=== PATIENT | female | born 1960 | race Two or more races ===

== ENCOUNTER → 2019-08-08 | Emergency (ER) | payer MEDICARE, MEDICAID ==
[~2019-08-08] VITALS: Ht 157.5 cm; Wt 71.2 kg
[~2019-08-08] MED LIST: ALBUTEROL SULF 2.5 MG/0.5ML(0.5%) NEB SOLN HHN ONE; IPRATROPIUM BROM 0.5 MG/2.5ML INH SOL HHN ONE; methylPREDNISolone SOD SUCC 125 MG/2 ML VL IV ONE
[2019-08-08 17:20] LABS: Basophils # (auto) 0 10 ^3/uL (0-0.2); Basophils % (auto) 0.8 % (0.0-2.0); Eosinophils # (auto) 0.1 10 ^3/uL (0-0.8); Eosinophils % (auto) 1.1 % (0.0-7.0); Hemoglobin 16.2 g/dL (12.2-16.2); Lymphocytes # (auto) 2.5 10 ^3/uL (0.4-5.4); Lymphocytes % (auto) 41.9 % (10.0-50.0); Mean Corpuscular Hemoglobin 32.4 pg (28.0-32.0); Mean Corpuscular Hgb Conc. 34.5 g/dL (32.0-36.0); Mean Corpuscular Volume 93.9 fL (80.0-100.0); Monocytes # (auto) 0.3 10 ^3/uL (0-1.3); Monocytes % (auto) 5.3 % (0.0-12.0); Neutrophils # (auto) 3.1 10 ^3/uL (1.6-8.6); Neutrophils % (auto) 50.9 % (37.0-80.0); Nucleated Red Blood Cells % 0.1 %; Platelet Count (auto) 187 10^3/uL (140-450); Red Blood Cells 5.01 10^6/uL (4.0-5.20); Red Cell Distribution Width 13.3 % (11.8-14.3); White Blood Cell 6.1 10^3/uL (4.4-10.8)
[2019-08-08 17:39] LABS: Albumin 4.2 g/dL (3.4-5.0); Anion Gap 9 (5-15); Blood Urea Nitrogen 18 mg/dL (7-18); Calcium 9.6 mg/dL (8.5-10.1); Carbon Dioxide 23 mmol/L (21-32); Chloride 107 mmol/L (98-107); Glucose 153 mg/dL (74-106); Potassium 4.3 mmol/L (3.5-5.1); Sodium 139 mmol/L (136-145)
[2019-08-08 17:46] LABS: Alanine Aminotransferase 101 U/L (13-56); Alkaline Phosphatase 46 U/L (45-117); Aspartate Aminotransferase 69 U/L (15-37); Bilirubin, Total 0.4 mg/dL (0.2-1.0); GFR African American 73 mL/min; GFR Non-African American 60 mL/min; Total Protein 7.9 g/dL (6.4-8.2)
[2019-08-08 20:00] VITALS: BP 118/71
== END | disposition home or self-care (01) ==
LOC: ER 16:09
DX: J44.9 Chronic obstructive pulmonary disease, unspecified (principal); J20.9 Acute bronchitis, unspecified; R79.89 Other specified abnormal findings of blood chemistry; I10 Essential (primary) hypertension; E78.5 Hyperlipidemia, unspecified; K21.9 Gastro-esophageal reflux disease without esophagitis; Z90.49 Acquired absence of other specified parts of digestive tract
CPT/HCPCS: 36415; 71045; 80053; 83735; 84484; 85025; 93005; 94640; 96374; 99285; J2930; J7644

== ENCOUNTER 2020-11-08 17:24 | Inpatient (IN) | payer MEDICARE, MEDICAID ==
[~2020-11-08] VITALS: Ht 162.6 cm; Wt 75.0 kg
[2020-11-08] MEDS ORDERED: methylPREDNISolone SOD SUCC 125 MG/2 ML VL IV ONE (17:45)
[2020-11-08] MEDS ORDERED: IPRATROPIUM BROM 0.5 MG/2.5ML INH SOL HHN ONE (17:45)
[2020-11-08] MEDS ORDERED: ALBUTEROL SULF 2.5 MG/0.5ML(0.5%) NEB SOLN HHN ONE (17:45)
[2020-11-08 18:19] LABS: Basophils # (auto) 0 10 ^3/uL (0-0.2); Basophils % (auto) 0.4 % (0.0-2.0); Eosinophils # (auto) 0.1 10 ^3/uL (0-0.8); Eosinophils % (auto) 1.3 % (0.0-7.0); Hematocrit 44.8 % (36.0-46.0); Hemoglobin 15.9 g/dL (12.2-16.2); Lymphocytes # (auto) 3.9 10 ^3/uL (0.4-5.4); Lymphocytes % (auto) 45.6 % (10.0-50.0); Mean Corpuscular Hemoglobin 32.4 pg (28.0-32.0); Mean Corpuscular Hgb Conc. 35.5 g/dL (32.0-36.0); Mean Corpuscular Volume 91.2 fL (80.0-100.0); Monocytes # (auto) 0.5 10 ^3/uL (0-1.3); Monocytes % (auto) 5.8 % (0.0-12.0); Neutrophils % (auto) 46.9 % (37.0-80.0); Nucleated Red Blood Cells % 0.1 %; Red Blood Cells 4.91 10^6/uL (4.0-5.20); Red Cell Distribution Width 13.6 % (11.8-14.3); White Blood Cell 8.6 10^3/uL (4.4-10.8)
[2020-11-08 18:35] LABS: Calcium 9.4 mg/dL (8.5-10.1); Potassium 3.5 mmol/L (3.5-5.1)
[2020-11-08 18:38] LABS: BUN/Creatinine Ratio 16.5; Bilirubin, Total 0.5 mg/dL (0.2-1.0); CRP High Sensitivity 0.11 mg/dL (< 0.3); Total Protein 7.8 g/dL (6.4-8.2)
[2020-11-08] MEDS ORDERED: DEXTROSE (50%) 50ML SYRG IV PRN (21:00)
[2020-11-08] MEDS ORDERED: MORPHINE SULF INJ 2 MG/ML SYRINGE 1ML IV PRN (21:00)
[2020-11-08] MEDS ORDERED: TEMAZEPAM 15 MG CAP PO PRN (21:00)
[2020-11-08] MEDS ORDERED: ONDANSETRON HCL 4 MG/2 ML VIAL IV PRN (21:00)
[2020-11-08] MEDS ORDERED: NITROGLYCERIN 0.4 MG SL TAB SL PRN (21:00)
[2020-11-08 21:45] VITALS: BP 130/80
[2020-11-08] MEDS: FAMOTIDINE 20 MG TAB PO SCH (22:02)
[2020-11-08] MEDS: ACCU-CHEK COMFORT CURVE STRIP VI SCH (22:03)
[2020-11-08] MEDS: InsuLIN REG 1unit/0.01ml Soln (100units/ml) SC SCH (22:03)
[2020-11-09] MEDS: IPRATROPIUM BROM 0.5 MG/2.5ML INH SOL NEB SCH ×3 (06:45→20:09)
[2020-11-09] MEDS: ALBUTEROL SULF 2.5 MG/0.5ML(0.5%) NEB SOLN NEB SCH ×3 (06:45→20:09)
[2020-11-09] MEDS: ACCU-CHEK COMFORT CURVE STRIP VI SCH ×4 (07:52→21:26)
[2020-11-09] MEDS: InsuLIN REG 1unit/0.01ml Soln (100units/ml) SC SCH ×4 (07:59→21:26)
[2020-11-09 08:53] VITALS: BP 113/78
[2020-11-09 09:00] VITALS: BP 136/78
[2020-11-09] MEDS ORDERED: methylPREDNISolone SOD SUCC 40 MG/ML VL IV SCH (10:00)
[2020-11-09] MEDS: ENOXAPARIN SOD 40 MG/0.4 ML SYRINGE SC SCH (10:10)
[2020-11-09] MEDS: ACETAMINOPHEN 325 MG TAB PO PRN (11:39)
[2020-11-09 12:00] VITALS: BP 110/66
[2020-11-09] MEDS ORDERED: DULO60CA PO (12:47)
[2020-11-09] MEDS ORDERED: ALBU2TAB4 PO (12:47)
[2020-11-09] MEDS ORDERED: ATOR10TA PO (12:47)
[2020-11-09] MEDS ORDERED: OMEP20TA PO (12:47)
[2020-11-09] MEDS ORDERED: UMEC1INH IN (12:47)
[2020-11-09] MEDS ORDERED: BUDE1AER4 IN (13:01)
[2020-11-09 16:00] VITALS: BP 105/73
[2020-11-09] MEDS ORDERED: HYDROcodone-ACET 5/325MG TAB PO PRN (16:15)
[2020-11-09] MEDS ORDERED: INSULIN LANTUS (GLARGINE) 1 /0.01ml (100units/ml) SC ONE (17:15)
[2020-11-09] MEDS: ACETYLCYSTEINE 10 %(100MG/ML) SOL 4ML NEB SCH (20:09)
[2020-11-09] MEDS: BUDESONIDE (INHALATION) 0.5 MG/2 ML NEB NEB SCH (20:09)
[2020-11-09] MEDS: FAMOTIDINE 20 MG TAB PO SCH (21:20)
[2020-11-09] MEDS: DOXYCYCLINE 100 MG TAB/CAP PO SCH (21:21)
[2020-11-09 22:00] VITALS: BP 115/76
[2020-11-10] MEDS: ACETYLCYSTEINE 10 %(100MG/ML) SOL 4ML NEB SCH ×4 (00:32→19:02)
[2020-11-10 05:00] VITALS: BP_SYST 146; BP_SYST 98; BP_DIAS 69; BP_DIAS 70
[2020-11-10] MEDS: ACCU-CHEK COMFORT CURVE STRIP VI SCH ×4 (06:23→21:27)
[2020-11-10] MEDS: InsuLIN REG 1unit/0.01ml Soln (100units/ml) SC SCH ×4 (06:23→21:28)
[2020-11-10] MEDS: IPRATROPIUM BROM 0.5 MG/2.5ML INH SOL NEB SCH ×3 (06:57→19:02)
[2020-11-10] MEDS: ALBUTEROL SULF 2.5 MG/0.5ML(0.5%) NEB SOLN NEB SCH ×3 (06:57→19:02)
[2020-11-10] MEDS: BUDESONIDE (INHALATION) 0.5 MG/2 ML NEB NEB SCH ×2 (06:57→19:02)
[2020-11-10 08:33] VITALS: BP 137/62
[2020-11-10] MEDS: ENOXAPARIN SOD 40 MG/0.4 ML SYRINGE SC SCH (09:01)
[2020-11-10] MEDS: DOXYCYCLINE 100 MG TAB/CAP PO SCH ×2 (09:01→21:31)
[2020-11-10] MEDS: DULoxetine HCL 30 MG CAP PO SCH (09:01)
[2020-11-10] MEDS: predniSONE 20 MG TAB PO SCH (09:01)
[2020-11-10] MEDS: NYSTATIN (MOUTH-THROAT) 500,000 UNITS/5 ML SUSP MT SCH ×3 (11:48→21:31)
[2020-11-10 13:00] VITALS: BP 138/71
[2020-11-10 17:00] VITALS: BP 128/87
[2020-11-10] MEDS: FAMOTIDINE 20 MG TAB PO SCH (21:31)
[2020-11-10 22:00] VITALS: BP 126/82
[2020-11-11 05:00] VITALS: BP 130/87
[2020-11-11] MEDS: ACETAMINOPHEN 325 MG TAB PO PRN (05:12)
[2020-11-11 06:14] LABS: Basophils # (auto) 0 10 ^3/uL (0-0.2); Basophils % (auto) 0.3 % (0.0-2.0); Eosinophils # (auto) 0 10 ^3/uL (0-0.8); Eosinophils % (auto) 0.2 % (0.0-7.0); Hematocrit 43.7 % (36.0-46.0); Hemoglobin 15.5 g/dL (12.2-16.2); Lymphocytes # (auto) 3.9 10 ^3/uL (0.4-5.4); Lymphocytes % (auto) 39.8 % (10.0-50.0); Mean Corpuscular Hemoglobin 32.8 pg (28.0-32.0); Mean Corpuscular Hgb Conc. 35.5 g/dL (32.0-36.0); Mean Corpuscular Volume 92.4 fL (80.0-100.0); Monocytes # (auto) 0.4 10 ^3/uL (0-1.3); Monocytes % (auto) 3.8 % (0.0-12.0); Neutrophils # (auto) 5.5 10 ^3/uL (1.6-8.6); Neutrophils % (auto) 55.9 % (37.0-80.0); Red Blood Cells 4.73 10^6/uL (4.0-5.20); Red Cell Distribution Width 13.3 % (11.8-14.3); White Blood Cell 9.9 10^3/uL (4.4-10.8)
[2020-11-11 06:21] LABS: Potassium 3.8 mmol/L (3.5-5.1)
[2020-11-11 06:28] LABS: Albumin 3.5 g/dL (3.4-5.0); Bilirubin, Total 0.5 mg/dL (0.2-1.0); Calcium 9.1 mg/dL (8.5-10.1); Total Protein 7.3 g/dL (6.4-8.2)
[2020-11-11] MEDS: ACCU-CHEK COMFORT CURVE STRIP VI SCH ×3 (06:45→16:57)
[2020-11-11] MEDS: InsuLIN REG 1unit/0.01ml Soln (100units/ml) SC SCH ×3 (06:47→16:57)
[2020-11-11] MEDS: NYSTATIN (MOUTH-THROAT) 500,000 UNITS/5 ML SUSP MT SCH ×3 (06:48→16:58)
[2020-11-11] MEDS: IPRATROPIUM BROM 0.5 MG/2.5ML INH SOL NEB SCH ×3 (07:21→18:26)
[2020-11-11] MEDS: ALBUTEROL SULF 2.5 MG/0.5ML(0.5%) NEB SOLN NEB SCH ×3 (07:21→18:26)
[2020-11-11] MEDS: BUDESONIDE (INHALATION) 0.5 MG/2 ML NEB NEB SCH ×2 (07:21→18:26)
[2020-11-11] MEDS: ACETYLCYSTEINE 10 %(100MG/ML) SOL 4ML NEB SCH ×3 (07:22→18:26)
[2020-11-11 08:50] VITALS: BP 128/77
[2020-11-11] MEDS: DULoxetine HCL 30 MG CAP PO SCH (09:22)
[2020-11-11] MEDS: DOXYCYCLINE 100 MG TAB/CAP PO SCH (09:22)
[2020-11-11] MEDS: ENOXAPARIN SOD 40 MG/0.4 ML SYRINGE SC SCH (09:22)
[2020-11-11] MEDS: predniSONE 20 MG TAB PO SCH (09:22)
[2020-11-11 13:00] VITALS: BP 136/84
[2020-11-11] MEDS ORDERED: levoFLOXacin 500 MG TAB PO ONE (13:30)
[2020-11-11 13:34] VITALS: BP 128/77
[2020-11-11] MEDS ORDERED: PRED20TA2 PO (16:03)
[2020-11-11] MEDS ORDERED: LEVO750T64 PO (16:03)
[2020-11-11 16:10] VITALS: BP 128/86
[2020-11-11] MEDS ORDERED: NYS5LQ MT (16:56)
[2020-11-11 17:00] VITALS: BP 145/95
[2020-11-12] MEDS ORDERED: levoFLOXacin 500 MG TAB PO SCH (10:00)
== END 2020-11-11 18:30 | disposition home or self-care (01) | DRG 192 ==
LOC: EDBD 17:24 → ER 17:24 → TELE 20:57 → TELE-CENTR 11-09 08:37 → CENTRAL 11-09 18:37
PROVIDERS: ADMIT Nurse Practitioner; ATTEND Internal Medicine
DX: J47.1 Bronchiectasis with (acute) exacerbation (principal); Z20.822 Contact with and (suspected) exposure to COVID-19; E11.65 Type 2 diabetes mellitus with hyperglycemia; E78.5 Hyperlipidemia, unspecified; J84.10 Pulmonary fibrosis, unspecified; I10 Essential (primary) hypertension; T38.0X5A Adverse effect of glucocorticoids and synthetic analogues, initial encounter; Y92.89 Other specified places as the place of occurrence of the external cause; Z80.9 Family history of malignant neoplasm, unspecified; Z82.49 Family history of ischemic heart disease and other diseases of the circulatory system; Z90.49 Acquired absence of other specified parts of digestive tract; Z87.891 Personal history of nicotine dependence
CPT/HCPCS: 36415; 71045; 71250; 80053; 82728; 82962; 83880; 85025; 86141; 87426; 93005; 94640; 94644; 96374; 96375; G0378; J1815; J2405

== ENCOUNTER 2021-07-07 17:29 | Inpatient (IN) | payer MEDICARE, MEDICAID ==
[~2021-07-07] VITALS: Ht 160 cm; Wt 73.5 kg
[~2021-07-07 17:29] MED LIST changes: +ALBU2TAB4 PO; -ALBUTEROL SULF 2.5 MG/0.5ML(0.5%) NEB SOLN HHN ONE; +ATOR10TA PO; +BUDE1AER4 IN; +DULO60CA PO; -IPRATROPIUM BROM 0.5 MG/2.5ML INH SOL HHN ONE; +LEVO750T64 PO; +NYS5LQ MT; +OMEP20TA PO; +PRED20TA2 PO; +UMEC1INH IN; -methylPREDNISolone SOD SUCC 125 MG/2 ML VL IV ONE
[2021-07-07] MEDS ORDERED: MORPHINE SULFATE 4 MG/ML SYR/VIAL IV ONE (18:00)
[2021-07-07] MEDS ORDERED: ONDANSETRON HCL 4 MG/2 ML VIAL IV ONE (18:00)
[2021-07-07] MEDS ORDERED: methylPREDNISolone SOD SUCC 125 MG/2 ML VL IV ONE (18:00)
[2021-07-07 18:28] LABS: Basophils # (auto) 0.2 10 ^3/uL (0-0.2); Basophils % (auto) 2.7 % (0.0-2.0); Eosinophils # (auto) 0.1 10 ^3/uL (0-0.8); Eosinophils % (auto) 1.6 % (0.0-7.0); Hematocrit 43.4 % (36.0-46.0); Hemoglobin 14.9 g/dL (12.2-16.2); Lymphocytes # (auto) 3.4 10 ^3/uL (0.4-5.4); Mean Corpuscular Hgb Conc. 34.2 g/dL (32.0-36.0); Mean Corpuscular Volume 90.7 fL (80.0-100.0); Monocytes # (auto) 0.3 10 ^3/uL (0-1.3); Neutrophils # (auto) 3.2 10 ^3/uL (1.6-8.6); Neutrophils % (auto) 44.7 % (37.0-80.0); Nucleated Red Blood Cells % 0.2 %; Red Blood Cells 4.79 10^6/uL (4.0-5.20); Red Cell Distribution Width 12.7 % (11.8-14.3); White Blood Cell 7.2 10^3/uL (4.4-10.8)
[2021-07-07 18:46] LABS: Albumin 3.9 g/dL (3.4-5.0); Calcium 9.5 mg/dL (8.5-10.1); Potassium 3.7 mmol/L (3.5-5.1)
[2021-07-07 18:48] LABS: Lactic Acid w/Reflex 2.1 mmol/L (0.4-2.0)
[2021-07-07 18:53] LABS: BUN/Creatinine Ratio 18.9; Bilirubin, Total 0.3 mg/dL (0.2-1.0); Total Protein 7.5 g/dL (6.4-8.2)
[2021-07-07] MEDS ORDERED: ONDANSETRON HCL 4 MG/2 ML VIAL IV PRN (21:45)
[2021-07-07] MEDS ORDERED: DOCUSATE SOD 100 MG CAP PO PRN (21:45)
[2021-07-07] MEDS: methylPREDNISolone SOD SUCC 40 MG/ML VL IV SCH (23:07)
[2021-07-07] MEDS: FAMOTIDINE (10MG/ML) 2ML VL IV SCH (23:07)
[2021-07-07] MEDS: SODIUM CHLOR 0.9% PF (SALINE LOCK) 10ML VIAL/SYR IV SCH (23:07)
[2021-07-07] MEDS: HYDROcodone-ACET 5/325MG TAB PO PRN (23:08)
[2021-07-07] MEDS ORDERED: MORPHINE SULFATE INJECTION 2 MG/ML SYRG IV PRN (23:30)
[2021-07-07] MEDS ORDERED: NITROGLYCERIN 0.4 MG SL TAB SL PRN (23:30)
[2021-07-08] MEDS ORDERED: ATOR10TA PO (02:08)
[2021-07-08] MEDS ORDERED: FENO160T8 PO (02:08)
[2021-07-08] MEDS ORDERED: METF-370 PO (02:08)
[2021-07-08 02:11] VITALS: BP 134/83
[2021-07-08] MEDS ORDERED: SOD CHL 0.45% 1,000 ML IV SCH (02:15)
[2021-07-08] MEDS: HYDROcodone-ACET 5/325MG TAB PO PRN ×2 (04:17→10:53)
[2021-07-08 04:44] VITALS: BP 112/71
[2021-07-08] MEDS: methylPREDNISolone SOD SUCC 40 MG/ML VL IV SCH ×3 (06:14→21:12)
[2021-07-08] MEDS: SODIUM CHLOR 0.9% PF (SALINE LOCK) 10ML VIAL/SYR IV SCH ×3 (06:14→21:13)
[2021-07-08 06:59] LABS: Basophils # (auto) 0 10 ^3/uL (0-0.2); Basophils % (auto) 0.5 % (0.0-2.0); Eosinophils # (auto) 0 10 ^3/uL (0-0.8); Eosinophils % (auto) 0.3 % (0.0-7.0); Hematocrit 43.3 % (36.0-46.0); Hemoglobin 14.4 g/dL (12.2-16.2); Lymphocytes # (auto) 1.6 10 ^3/uL (0.4-5.4); Lymphocytes % (auto) 34.3 % (10.0-50.0); Mean Corpuscular Hemoglobin 30.7 pg (28.0-32.0); Mean Corpuscular Hgb Conc. 33.3 g/dL (32.0-36.0); Mean Corpuscular Volume 92.1 fL (80.0-100.0); Monocytes # (auto) 0 10 ^3/uL (0-1.3); Monocytes % (auto) 0.7 % (0.0-12.0); Neutrophils # (auto) 2.9 10 ^3/uL (1.6-8.6); Neutrophils % (auto) 64.2 % (37.0-80.0); Nucleated Red Blood Cells % 0.1 %; Red Cell Distribution Width 12.8 % (11.8-14.3); White Blood Cell 4.5 10^3/uL (4.4-10.8)
[2021-07-08 07:13] LABS: Potassium 4.1 mmol/L (3.5-5.1)
[2021-07-08 07:17] LABS: Lactic Acid w/Reflex 2.4 mmol/L (0.4-2.0)
[2021-07-08 07:24] LABS: Albumin 3.8 g/dL (3.4-5.0); BUN/Creatinine Ratio 18.2; Bilirubin, Total 0.4 mg/dL (0.2-1.0); Calcium 9.1 mg/dL (8.5-10.1); Total Protein 7.6 g/dL (6.4-8.2)
[2021-07-08 09:00] VITALS: BP 155/80
[2021-07-08] MEDS: FAMOTIDINE (10MG/ML) 2ML VL IV SCH ×2 (10:53→21:12)
[2021-07-08] MEDS: ENOXAPARIN SOD 40 MG/0.4 ML SYRINGE SC SCH (10:53)
[2021-07-08 13:00] VITALS: BP 145/85
[2021-07-08] MEDS: ACETAMINOPHEN 325 MG TAB PO PRN (15:30)
[2021-07-08] MEDS ORDERED: guaiFENesin 200 MG/10 ML UD GT PRN (16:00)
[2021-07-08 17:00] VITALS: BP 129/77
[2021-07-08] MEDS: ACCU-CHEK COMFORT CURVE STRIP VI SCH (21:44)
[2021-07-08] MEDS ORDERED: DEXTROSE (50%) 50ML SYRG IV SCH (21:45)
[2021-07-08] MEDS: InsuLIN REG 1unit/0.01ml Soln (100units/ml) SC SCH (21:48)
[2021-07-08 22:00] VITALS: BP 141/89
[2021-07-09] MEDS: ALBUTEROL SULF 2.5 MG/0.5ML(0.5%) NEB SOLN NEB PRN ×4 (00:31→19:17)
[2021-07-09] MEDS: IPRATROPIUM BROM 0.5 MG/2.5ML INH SOL NEB PRN ×4 (00:31→19:17)
[2021-07-09 05:00] VITALS: BP 139/83
[2021-07-09] MEDS: SODIUM CHLOR 0.9% PF (SALINE LOCK) 10ML VIAL/SYR IV SCH ×3 (06:31→21:21)
[2021-07-09] MEDS: methylPREDNISolone SOD SUCC 40 MG/ML VL IV SCH ×3 (06:31→21:19)
[2021-07-09] MEDS: InsuLIN REG 1unit/0.01ml Soln (100units/ml) SC SCH ×4 (06:31→21:33)
[2021-07-09] MEDS: ACCU-CHEK COMFORT CURVE STRIP VI SCH ×4 (06:32→21:32)
[2021-07-09 09:00] VITALS: BP 144/84
[2021-07-09] MEDS: ENOXAPARIN SOD 40 MG/0.4 ML SYRINGE SC SCH (10:00)
[2021-07-09] MEDS: FAMOTIDINE (10MG/ML) 2ML VL IV SCH ×2 (10:00→21:19)
[2021-07-09 13:00] VITALS: BP 160/92
[2021-07-09 16:42] VITALS: BP 160/96
[2021-07-09] MEDS: PROMETHAZINE W/CODEINE 5 ML ORAL SYRUP PO PRN ×2 (16:56→21:24)
[2021-07-09] MEDS ORDERED: LOSARTAN POTASSIUM 50 MG TAB PO ONE (18:00)
[2021-07-09] MEDS ORDERED: levoFLOXacin 500 MG TAB PO ONE (18:00)
[2021-07-10] MEDS: IPRATROPIUM BROM 0.5 MG/2.5ML INH SOL NEB SCH ×6 (03:06→22:34)
[2021-07-10] MEDS: ALBUTEROL SULF 2.5 MG/0.5ML(0.5%) NEB SOLN NEB SCH ×6 (03:06→22:34)
[2021-07-10 05:00] VITALS: BP 151/91
[2021-07-10] MEDS: methylPREDNISolone SOD SUCC 40 MG/ML VL IV SCH ×3 (06:22→21:51)
[2021-07-10] MEDS: ACCU-CHEK COMFORT CURVE STRIP VI SCH ×4 (06:29→21:11)
[2021-07-10] MEDS: InsuLIN REG 1unit/0.01ml Soln (100units/ml) SC SCH ×4 (06:31→20:57)
[2021-07-10] MEDS: SODIUM CHLOR 0.9% PF (SALINE LOCK) 10ML VIAL/SYR IV SCH ×3 (06:33→21:50)
[2021-07-10 09:00] VITALS: BP 158/95
[2021-07-10] MEDS: levoFLOXacin 500 MG TAB PO SCH (10:13)
[2021-07-10] MEDS: FAMOTIDINE (10MG/ML) 2ML VL IV SCH ×2 (10:13→21:50)
[2021-07-10] MEDS: LOSARTAN POTASSIUM 50 MG TAB PO SCH (10:13)
[2021-07-10] MEDS: ENOXAPARIN SOD 40 MG/0.4 ML SYRINGE SC SCH (10:13)
[2021-07-10 13:00] VITALS: BP 147/96
[2021-07-10] MEDS ORDERED: hydrALAZINE HCL 20 MG/ML VL IV PRN (14:30)
[2021-07-10] MEDS: PROMETHAZINE W/CODEINE 5 ML ORAL SYRUP PO PRN (14:54)
[2021-07-10 17:00] VITALS: BP 167/101
[2021-07-10] MEDS: ACETAMINOPHEN 325 MG TAB PO PRN (17:13)
[2021-07-10 18:40] VITALS: BP 148/81
[2021-07-10 20:00] VITALS: BP 166/100
[2021-07-10] MEDS: INSULIN LANTUS (GLARGINE) 1 /0.01ml (100units/ml) SC SCH (22:00)
[2021-07-10] MEDS: ACETYLCYSTEINE 20%(200MG/ML) SOL 4ML NEB SCH (22:34)
[2021-07-11] MEDS: IPRATROPIUM BROM 0.5 MG/2.5ML INH SOL NEB SCH ×5 (06:01→22:59)
[2021-07-11] MEDS: ACETYLCYSTEINE 20%(200MG/ML) SOL 4ML NEB SCH ×5 (06:01→22:59)
[2021-07-11] MEDS: ALBUTEROL SULF 2.5 MG/0.5ML(0.5%) NEB SOLN NEB SCH ×5 (06:01→22:59)
[2021-07-11] MEDS: InsuLIN REG 1unit/0.01ml Soln (100units/ml) SC SCH ×4 (06:07→21:42)
[2021-07-11] MEDS: ACCU-CHEK COMFORT CURVE STRIP VI SCH ×4 (06:27→21:22)
[2021-07-11] MEDS: SODIUM CHLOR 0.9% PF (SALINE LOCK) 10ML VIAL/SYR IV SCH ×3 (06:36→21:23)
[2021-07-11] MEDS: methylPREDNISolone SOD SUCC 40 MG/ML VL IV SCH ×3 (06:36→21:23)
[2021-07-11 07:27] LABS: Lactic Acid w/Reflex 2.9 mmol/L (0.4-2.0)
[2021-07-11 07:39] VITALS: BP 115/70
[2021-07-11 07:57] LABS: Alkaline Phosphatase 49 U/L (45-117); Anion Gap 9 (5-15); BUN/Creatinine Ratio 24.5; Blood Urea Nitrogen 23 mg/dL (7-18); Carbon Dioxide 21 mmol/L (21-32); Chloride 108 mmol/L (98-107); GFR African American 78 mL/min; GFR Non-African American 64 mL/min; Glucose 184 mg/dL (74-106); Potassium 4.3 mmol/L (3.5-5.1); Sodium 138 mmol/L (136-145)
[2021-07-11 07:58] LABS: Alanine Aminotransferase 264 U/L (13-56); Albumin 4.2 g/dL (3.4-5.0); Aspartate Aminotransferase 229 U/L (15-37); Bilirubin, Total 0.4 mg/dL (0.2-1.0); Total Protein 8.6 g/dL (6.4-8.2)
[2021-07-11 08:45] VITALS: BP 150/94
[2021-07-11] MEDS ORDERED: ALBUTEROL SULF 2.5 MG/0.5ML(0.5%) NEB SOLN ONE ×2 (09:11→13:23)
[2021-07-11] MEDS ORDERED: IPRATROPIUM BROM 0.5 MG/2.5ML INH SOL ONE ×2 (09:12→13:23)
[2021-07-11] MEDS: FAMOTIDINE (10MG/ML) 2ML VL IV SCH ×2 (09:38→21:22)
[2021-07-11] MEDS: ENOXAPARIN SOD 40 MG/0.4 ML SYRINGE SC SCH (09:39)
[2021-07-11] MEDS: LOSARTAN POTASSIUM 50 MG TAB PO SCH (09:39)
[2021-07-11] MEDS: levoFLOXacin 500 MG TAB PO SCH (09:39)
[2021-07-11] MEDS: ACETAMINOPHEN 325 MG TAB PO PRN (09:46)
[2021-07-11 13:00] VITALS: BP 138/98
[2021-07-11] MEDS: PROMETHAZINE W/CODEINE 5 ML ORAL SYRUP PO PRN (13:07)
[2021-07-11 17:00] VITALS: BP 133/81
[2021-07-11] MEDS: NYSTATIN (MOUTH-THROAT) 500,000 UNITS/5 ML SUSP MT SCH ×2 (19:39→21:24)
[2021-07-11] MEDS: INSULIN LANTUS (GLARGINE) 1 /0.01ml (100units/ml) SC SCH (21:42)
[2021-07-11 22:00] VITALS: BP 136/84
[2021-07-12] MEDS: ACETAMINOPHEN 325 MG TAB PO PRN (03:20)
[2021-07-12] MEDS: PROMETHAZINE W/CODEINE 5 ML ORAL SYRUP PO PRN (03:20)
[2021-07-12 05:00] VITALS: BP 138/89
[2021-07-12] MEDS: ALBUTEROL SULF 2.5 MG/0.5ML(0.5%) NEB SOLN NEB SCH ×5 (06:01→21:41)
[2021-07-12] MEDS: ACETYLCYSTEINE 20%(200MG/ML) SOL 4ML NEB SCH ×6 (06:01→21:41)
[2021-07-12] MEDS: IPRATROPIUM BROM 0.5 MG/2.5ML INH SOL NEB SCH ×5 (06:01→21:41)
[2021-07-12] MEDS: ACCU-CHEK COMFORT CURVE STRIP VI SCH ×4 (06:09→21:55)
[2021-07-12] MEDS: methylPREDNISolone SOD SUCC 40 MG/ML VL IV SCH ×2 (06:10→21:19)
[2021-07-12] MEDS: NYSTATIN (MOUTH-THROAT) 500,000 UNITS/5 ML SUSP MT SCH ×4 (06:10→21:19)
[2021-07-12] MEDS: SODIUM CHLOR 0.9% PF (SALINE LOCK) 10ML VIAL/SYR IV SCH ×3 (06:10→21:18)
[2021-07-12] MEDS: InsuLIN REG 1unit/0.01ml Soln (100units/ml) SC SCH ×4 (06:17→22:03)
[2021-07-12 08:51] VITALS: BP 101/59
[2021-07-12] MEDS: FAMOTIDINE (10MG/ML) 2ML VL IV SCH ×2 (09:09→21:18)
[2021-07-12] MEDS: levoFLOXacin 500 MG TAB PO SCH (09:10)
[2021-07-12] MEDS: ENOXAPARIN SOD 40 MG/0.4 ML SYRINGE SC SCH (09:10)
[2021-07-12] MEDS: LOSARTAN POTASSIUM 50 MG TAB PO SCH (09:11)
[2021-07-12 12:52] VITALS: BP 149/99
[2021-07-12] MEDS ORDERED: HYDROcodone-ACET 5/325MG TAB PO PRN (14:15)
[2021-07-12 17:00] VITALS: BP 131/87
[2021-07-12 21:34] VITALS: BP 128/85
[2021-07-12] MEDS: INSULIN LANTUS (GLARGINE) 1 /0.01ml (100units/ml) SC SCH (22:05)
[2021-07-13 05:00] VITALS: BP 118/91
[2021-07-13] MEDS: SODIUM CHLOR 0.9% PF (SALINE LOCK) 10ML VIAL/SYR IV SCH (05:53)
[2021-07-13] MEDS: NYSTATIN (MOUTH-THROAT) 500,000 UNITS/5 ML SUSP MT SCH ×2 (05:54→13:51)
[2021-07-13] MEDS: ACETYLCYSTEINE 20%(200MG/ML) SOL 4ML NEB SCH ×3 (06:00→14:00)
[2021-07-13 06:03] LABS: Hematocrit 47.3 % (36.0-46.0); Hemoglobin 16.4 g/dL (12.2-16.2); Mean Corpuscular Hemoglobin 31.4 pg (28.0-32.0); Mean Corpuscular Hgb Conc. 34.7 g/dL (32.0-36.0); Mean Corpuscular Volume 90.5 fL (80.0-100.0); Red Blood Cells 5.22 10^6/uL (4.0-5.20); Red Cell Distribution Width 13.1 % (11.8-14.3); White Blood Cell 10.3 10^3/uL (4.4-10.8)
[2021-07-13 06:11] LABS: INR 1.05 (0.9-1.15)
[2021-07-13] MEDS: ACCU-CHEK COMFORT CURVE STRIP VI SCH ×2 (06:15→11:30)
[2021-07-13] MEDS: ALBUTEROL SULF 2.5 MG/0.5ML(0.5%) NEB SOLN NEB SCH ×3 (06:28→14:00)
[2021-07-13] MEDS: IPRATROPIUM BROM 0.5 MG/2.5ML INH SOL NEB SCH ×3 (06:28→14:00)
[2021-07-13] MEDS: InsuLIN REG 1unit/0.01ml Soln (100units/ml) SC SCH ×2 (06:32→13:51)
[2021-07-13 06:33] LABS: Magnesium 2.3 mg/dL (1.6-2.6); Potassium 4.3 mmol/L (3.5-5.1)
[2021-07-13 06:39] LABS: Basophils % (manual) 0 (0.0-2.0); Blast Cells 0; Eosinophils % (manual) 0 (0-7); Metamyelocytes % 0; Promyelocytes % 0; Reactive Lymphocytes 0
[2021-07-13 06:40] LABS: Bilirubin, Total 0.4 mg/dL (0.2-1.0); Calcium 9.9 mg/dL (8.5-10.1); Total Protein 7.5 g/dL (6.4-8.2)
[2021-07-13 08:34] LABS: Band Neutrophils % (manual) 2; Lymphocytes % (manual) 20 (10.0-50.0); Monocytes % (manual) 2 (0-12); Myelocytes % 1
[2021-07-13 09:00] VITALS: BP 122/75
[2021-07-13] MEDS: FAMOTIDINE (10MG/ML) 2ML VL IV SCH (10:56)
[2021-07-13] MEDS: methylPREDNISolone SOD SUCC 40 MG/ML VL IV SCH (10:56)
[2021-07-13] MEDS: levoFLOXacin 500 MG TAB PO SCH (10:57)
[2021-07-13] MEDS: ENOXAPARIN SOD 40 MG/0.4 ML SYRINGE SC SCH (10:57)
[2021-07-13] MEDS: LOSARTAN POTASSIUM 50 MG TAB PO SCH (10:58)
[2021-07-13] MEDS ORDERED: BISACODYL 10 MG RECT SUPP PR ONE (12:00)
[2021-07-13 13:00] VITALS: BP 124/89
[2021-07-13] MEDS ORDERED: LEVO500T31 PO (14:14)
[2021-07-13] MEDS ORDERED: PRED20TA2 PO (14:14)
[2021-07-13] MEDS ORDERED: DEXT1SYP9 PO (14:14)
[2021-07-13] MEDS ORDERED: DOCU-94 PO (14:16)
[2021-07-13] MEDS ORDERED: LOSA25TA38 PO (14:17)
[2021-07-13 15:28] LABS: Hepatitis B Surface Antibody Positive (Negative)
[2021-07-13 15:53] LABS: Hepatitis A Total Antibody Positive (Negative)
[2021-07-13 16:29] LABS: Hepatitis C Antibody Positive (Negative)
== END 2021-07-13 17:15 | disposition home or self-care (01) | DRG 196 ==
LOC: ER 17:30 → TELE 23:21 → TELE-WESTW 07-08 01:39
PROVIDERS: ADMIT Nurse Practitioner Family; ATTEND Internal Medicine
DX: J84.112 Idiopathic pulmonary fibrosis (principal); J96.21 Acute and chronic respiratory failure with hypoxia; J44.1 Chronic obstructive pulmonary disease with (acute) exacerbation; J44.0 Chronic obstructive pulmonary disease with (acute) lower respiratory infection; J98.11 Atelectasis; B17.9 Acute viral hepatitis, unspecified; D72.829 Elevated white blood cell count, unspecified; I10 Essential (primary) hypertension; J20.9 Acute bronchitis, unspecified; K21.9 Gastro-esophageal reflux disease without esophagitis; E11.9 Type 2 diabetes mellitus without complications; K76.9 Liver disease, unspecified; R79.89 Other specified abnormal findings of blood chemistry; E78.5 Hyperlipidemia, unspecified; Z80.9 Family history of malignant neoplasm, unspecified; Z82.0 Family history of epilepsy and other diseases of the nervous system; Z99.81 Dependence on supplemental oxygen; Z82.49 Family history of ischemic heart disease and other diseases of the circulatory system; Z86.16 Personal history of COVID-19; Z87.01 Personal history of pneumonia (recurrent); Z87.891 Personal history of nicotine dependence; Z90.49 Acquired absence of other specified parts of digestive tract
CPT/HCPCS: 36415; 36600; 71045; 71046; 76705; 80053; 80061; 82728; 82805; 82962; 83036; 83605; 83735; 83880; 84443; 84484; 85007; 85025; 85027; 85610; 86141; 86703; 86704; 86706; 86708; 86803; 87040; 87340; 87426; 93005; 94640; 94667; 96374; 96375; G0378; J1815; J2405; J3490

== ENCOUNTER 2021-10-07 18:02 | Inpatient (IN) | payer MEDICARE, MEDICAID ==
[~2021-10-07] VITALS: Ht 177.8 cm; Wt 68.5 kg
[~2021-10-07 18:02] MED LIST changes: +DEXT1SYP9 PO; +DOCU-94 PO; +FENO160T8 PO; +LEVO500T31 PO; +LOSA25TA38 PO; +METF-370 PO
[2021-10-07] MEDS ORDERED: methylPREDNISolone SOD SUCC 125 MG/2 ML VL IV ONE (20:00)
[2021-10-07] MEDS ORDERED: ALBUTEROL SULF 2.5 MG/0.5ML(0.5%) NEB SOLN NEB ONE (20:00)
[2021-10-07] MEDS ORDERED: IPRATROPIUM BROM 0.5 MG/2.5ML INH SOL NEB ONE (20:00)
[2021-10-07] MEDS: MAGNESIUM SULFATE 1GM/100ML 100 ML IV SCH (21:11)
[2021-10-07 22:11] LABS: Basophils # (auto) 0.1 10 ^3/uL (0-0.2); Basophils % (auto) 0.9 % (0.0-2.0); Eosinophils # (auto) 0 10 ^3/uL (0-0.8); Hematocrit 43.3 % (36.0-46.0); Hemoglobin 14.8 g/dL (12.2-16.2); Lymphocytes # (auto) 4.3 10 ^3/uL (0.4-5.4); Lymphocytes % (auto) 44.1 % (10.0-50.0); Mean Corpuscular Hemoglobin 31.3 pg (28.0-32.0); Mean Corpuscular Hgb Conc. 34.1 g/dL (32.0-36.0); Mean Corpuscular Volume 91.7 fL (80.0-100.0); Monocytes # (auto) 0.5 10 ^3/uL (0-1.3); Monocytes % (auto) 5.4 % (0.0-12.0); Neutrophils # (auto) 4.8 10 ^3/uL (1.6-8.6); Neutrophils % (auto) 49.6 % (37.0-80.0); Nucleated Red Blood Cells % 0.1 %; Red Blood Cells 4.72 10^6/uL (4.0-5.20); Red Cell Distribution Width 13.4 % (11.8-14.3); White Blood Cell 9.7 10^3/uL (4.4-10.8)
[2021-10-07 22:37] LABS: Partial Thromboplastin Time 26.3 sec (23.6-33.0)
[2021-10-07 22:40] LABS: Albumin 4.1 g/dL (3.4-5.0); BUN/Creatinine Ratio 21.4; Calcium 9.7 mg/dL (8.5-10.1); Magnesium 1.4 mg/dL (1.6-2.6); Potassium 3.1 mmol/L (3.5-5.1)
[2021-10-07 22:43] LABS: Bilirubin, Total 0.3 mg/dL (0.2-1.0); Total Protein 7.7 g/dL (6.4-8.2)
[2021-10-07] MEDS ORDERED: POTASSIUM EFFERVESENT TAB 25 MEQ PO ONE (23:00)
[2021-10-08] MEDS ORDERED: HYDROcodone-ACET 5/325MG TAB PO PRN (00:15)
[2021-10-08] MEDS ORDERED: AZITHROMYCIN 500MG/ 250ML 250 ML IV ONE (00:15)
[2021-10-08] MEDS ORDERED: DOCUSATE SOD 100 MG CAP PO PRN (00:15)
[2021-10-08] MEDS ORDERED: ONDANSETRON HCL 4 MG/2 ML VIAL IV PRN (00:15)
[2021-10-08] MEDS ORDERED: DEXTROSE (50%) 50ML SYRG IV PRN (00:15)
[2021-10-08 00:34] VITALS: BP 130/75
[2021-10-08] MEDS ORDERED: NITROGLYCERIN 0.4 MG SL TAB SL PRN (01:00)
[2021-10-08] MEDS ORDERED: MORPHINE SULFATE INJ 2 MG/ml SYRG IV PRN (01:00)
[2021-10-08] MEDS ORDERED: MAGNESIUM SULFATE 1GM/100ML 100 ML IV ONE (03:30)
[2021-10-08] MEDS: MAGNESIUM SULFATE 1GM/100ML 100 ML IV SCH (03:31)
[2021-10-08] MEDS: SODIUM CHLOR 0.9% PF (SALINE LOCK) 10ML VIAL/SYR IV SCH ×3 (03:33→21:07)
[2021-10-08 05:56] VITALS: BP 120/72
[2021-10-08] MEDS: ACCU-CHEK COMFORT CURVE STRIP VI SCH ×4 (06:21→21:07)
[2021-10-08] MEDS: methylPREDNISolone SOD SUCC 40 MG/ML VL IV SCH ×3 (06:21→21:07)
[2021-10-08] MEDS: InsuLIN REG 1unit/0.01ml Soln (100units/ml) SC SCH ×3 (06:27→17:00)
[2021-10-08 08:30] VITALS: BP 124/72
[2021-10-08] MEDS: FAMOTIDINE (10MG/ML) 2ML VL IV SCH ×2 (09:51→21:06)
[2021-10-08] MEDS: MULTIPLE VITAMIN TAB PO SCH (09:52)
[2021-10-08] MEDS: ENOXAPARIN SOD 40 MG/0.4 ML SYRINGE SC SCH (09:52)
[2021-10-08] MEDS: ASCORBIC ACID 500 MG TAB PO SCH ×2 (09:52→21:05)
[2021-10-08] MEDS: ZINC SULFATE 220mg CAP or TAB PO SCH (09:52)
[2021-10-08] MEDS: ACETAMINOPHEN 325 MG TAB PO PRN (09:53)
[2021-10-08 10:01] LABS: Albumin 3.7 g/dL (3.4-5.0); Calcium 8.9 mg/dL (8.5-10.1)
[2021-10-08 10:05] LABS: BUN/Creatinine Ratio 17.4; Bilirubin, Total 0.3 mg/dL (0.2-1.0); Total Protein 7.6 g/dL (6.4-8.2)
[2021-10-08 10:06] LABS: Basophils # (auto) 0 10 ^3/uL (0-0.2); Basophils % (auto) 0.3 % (0.0-2.0); Eosinophils # (auto) 0 10 ^3/uL (0-0.8); Hematocrit 42.1 % (36.0-46.0); Hemoglobin 14.4 g/dL (12.2-16.2); Lymphocytes # (auto) 1.5 10 ^3/uL (0.4-5.4); Lymphocytes % (auto) 21.3 % (10.0-50.0); Mean Corpuscular Hemoglobin 31.7 pg (28.0-32.0); Mean Corpuscular Hgb Conc. 34.3 g/dL (32.0-36.0); Mean Corpuscular Volume 92.2 fL (80.0-100.0); Monocytes # (auto) 0.2 10 ^3/uL (0-1.3); Monocytes % (auto) 2.7 % (0.0-12.0); Neutrophils # (auto) 5.3 10 ^3/uL (1.6-8.6); Neutrophils % (auto) 75.7 % (37.0-80.0); Nucleated Red Blood Cells % 0.1 %; Red Blood Cells 4.56 10^6/uL (4.0-5.20); Red Cell Distribution Width 13.3 % (11.8-14.3)
[2021-10-08] MEDS: IPRATROPIUM BROM 0.5 MG/2.5ML INH SOL NEB PRN ×2 (10:29→18:10)
[2021-10-08] MEDS: ALBUTEROL SULF 2.5 MG/0.5ML(0.5%) NEB SOLN NEB PRN ×2 (10:29→18:10)
[2021-10-08 12:25] VITALS: BP 114/73
[2021-10-08 16:30] VITALS: BP 126/86
[2021-10-08] MEDS ORDERED: AZITHROMYCIN 500MG/ 250ML 250 ML IV SCH (21:00)
[2021-10-08] MEDS ORDERED: InsuLIN REG 1unit/0.01ml Soln (100units/ml) SC SCH (22:00)
[2021-10-09 04:53] VITALS: BP 122/68
[2021-10-09] MEDS: SODIUM CHLOR 0.9% PF (SALINE LOCK) 10ML VIAL/SYR IV SCH ×2 (05:12→14:21)
[2021-10-09] MEDS: ACCU-CHEK COMFORT CURVE STRIP VI SCH ×2 (06:08→11:30)
[2021-10-09] MEDS: methylPREDNISolone SOD SUCC 40 MG/ML VL IV SCH ×2 (06:08→14:37)
[2021-10-09] MEDS: InsuLIN REG 1unit/0.01ml Soln (100units/ml) SC SCH ×2 (06:13→12:00)
[2021-10-09] MEDS: ACETAMINOPHEN 325 MG TAB PO PRN (06:18)
[2021-10-09] MEDS: ALBUTEROL SULF 2.5 MG/0.5ML(0.5%) NEB SOLN NEB SCH ×2 (06:24→11:24)
[2021-10-09] MEDS: IPRATROPIUM BROM 0.5 MG/2.5ML INH SOL NEB SCH ×2 (06:25→11:25)
[2021-10-09 08:25] VITALS: BP 120/68
[2021-10-09] MEDS: ASCORBIC ACID 500 MG TAB PO SCH (08:57)
[2021-10-09] MEDS: ZINC SULFATE 220mg CAP or TAB PO SCH (08:57)
[2021-10-09] MEDS: MULTIPLE VITAMIN TAB PO SCH (08:57)
[2021-10-09] MEDS: FAMOTIDINE (10MG/ML) 2ML VL IV SCH (09:00)
[2021-10-09] MEDS: ENOXAPARIN SOD 40 MG/0.4 ML SYRINGE SC SCH (09:01)
[2021-10-09 09:14] LABS: Basophils # (auto) 0 10 ^3/uL (0-0.2); Basophils % (auto) 0.7 % (0.0-2.0); Eosinophils # (auto) 0 10 ^3/uL (0-0.8); Hematocrit 42.3 % (36.0-46.0); Hemoglobin 14.5 g/dL (12.2-16.2); Lymphocytes # (auto) 1.3 10 ^3/uL (0.4-5.4); Lymphocytes % (auto) 16.9 % (10.0-50.0); Mean Corpuscular Hemoglobin 31.8 pg (28.0-32.0); Mean Corpuscular Hgb Conc. 34.2 g/dL (32.0-36.0); Monocytes # (auto) 0.2 10 ^3/uL (0-1.3); Monocytes % (auto) 2.9 % (0.0-12.0); Neutrophils # (auto) 6.1 10 ^3/uL (1.6-8.6); Neutrophils % (auto) 79.5 % (37.0-80.0); Nucleated Red Blood Cells % 0.1 %; Red Blood Cells 4.55 10^6/uL (4.0-5.20); Red Cell Distribution Width 13.4 % (11.8-14.3); White Blood Cell 7.6 10^3/uL (4.4-10.8)
[2021-10-09 09:37] LABS: Albumin 3.6 g/dL (3.4-5.0); Potassium 4.2 mmol/L (3.5-5.1)
[2021-10-09 09:42] LABS: BUN/Creatinine Ratio 17.4; Bilirubin, Total 0.6 mg/dL (0.2-1.0); Total Protein 7.3 g/dL (6.4-8.2)
[2021-10-09] MEDS ORDERED: AZIT500I9 IV (12:00)
[2021-10-09] MEDS ORDERED: PRED20TA2 PO (12:00)
[2021-10-09 12:20] VITALS: BP 145/76
== END 2021-10-09 15:46 | disposition home or self-care (01) | DRG 193 ==
LOC: EDUNIT# 18:02 → EDSEX 18:02 → EDBD 18:02 → ER 18:02 → WEST WING 10-08 00:46
PROVIDERS: ADMIT Nurse Practitioner Family; ATTEND Family Medicine
DX: J18.9 Pneumonia, unspecified organism (principal); J96.21 Acute and chronic respiratory failure with hypoxia; J44.1 Chronic obstructive pulmonary disease with (acute) exacerbation; J98.11 Atelectasis; J44.0 Chronic obstructive pulmonary disease with (acute) lower respiratory infection; B18.2 Chronic viral hepatitis C; E11.9 Type 2 diabetes mellitus without complications; E78.5 Hyperlipidemia, unspecified; E83.42 Hypomagnesemia; E87.6 Hypokalemia; I10 Essential (primary) hypertension; R79.89 Other specified abnormal findings of blood chemistry; J84.10 Pulmonary fibrosis, unspecified; K21.9 Gastro-esophageal reflux disease without esophagitis; Z86.16 Personal history of COVID-19; Z87.01 Personal history of pneumonia (recurrent); Z99.81 Dependence on supplemental oxygen; Z87.891 Personal history of nicotine dependence; Z90.49 Acquired absence of other specified parts of digestive tract; Z20.822 Contact with and (suspected) exposure to COVID-19; Z82.0 Family history of epilepsy and other diseases of the nervous system; Z82.49 Family history of ischemic heart disease and other diseases of the circulatory system; Z86.19 Personal history of other infectious and parasitic diseases
CPT/HCPCS: 36415; 71045; 80053; 82962; 83036; 83735; 83880; 84484; 85025; 85379; 85610; 85730; 93005; 93971; 94640; 94644; 96365; 96375; G0378; J1815; J3490

== ENCOUNTER 2021-10-20 17:44 | Inpatient (IN) | payer MEDICARE, MEDICAID ==
[~2021-10-20] VITALS: Ht 160 cm; Wt 69.3 kg
[~2021-10-20 17:44] MED LIST changes: +AZIT500I9 IV
[2021-10-20 19:01] LABS: Basophils # (auto) 0 10 ^3/uL (0-0.2); Basophils % (auto) 0.4 % (0.0-2.0); Eosinophils # (auto) 0.1 10 ^3/uL (0-0.8); Eosinophils % (auto) 0.6 % (0.0-7.0); Hematocrit 46.9 % (36.0-46.0); Hemoglobin 15.8 g/dL (12.2-16.2); Lymphocytes # (auto) 3.5 10 ^3/uL (0.4-5.4); Lymphocytes % (auto) 40.3 % (10.0-50.0); Mean Corpuscular Hemoglobin 31.4 pg (28.0-32.0); Mean Corpuscular Hgb Conc. 33.7 g/dL (32.0-36.0); Mean Corpuscular Volume 93.2 fL (80.0-100.0); Monocytes # (auto) 0.4 10 ^3/uL (0-1.3); Monocytes % (auto) 4.1 % (0.0-12.0); Neutrophils # (auto) 4.8 10 ^3/uL (1.6-8.6); Neutrophils % (auto) 54.6 % (37.0-80.0); Red Blood Cells 5.03 10^6/uL (4.0-5.20); White Blood Cell 8.7 10^3/uL (4.4-10.8)
[2021-10-20 19:23] LABS: Albumin 3.6 g/dL (3.4-5.0); BUN/Creatinine Ratio 22.9; Calcium 9.6 mg/dL (8.5-10.1); Magnesium 1.3 mg/dL (1.6-2.6); Potassium 3.8 mmol/L (3.5-5.1)
[2021-10-20 19:25] LABS: Bilirubin, Total 0.5 mg/dL (0.2-1.0)
[2021-10-20] MEDS ORDERED: ALBUTEROL SULF 2.5 MG/0.5ML(0.5%) NEB SOLN NEB ONE (21:00)
[2021-10-20] MEDS ORDERED: IPRATROPIUM BROM 0.5 MG/2.5ML INH SOL NEB ONE (21:00)
[2021-10-20] MEDS ORDERED: methylPREDNISolone SOD SUCC 125 MG/2 ML VL IV ONE (21:00)
[2021-10-20] MEDS ORDERED: AZITHROMYCIN 500MG/ 250ML 250 ML IV ONE ×2 (23:15)
[2021-10-20] MEDS ORDERED: cefTRIAXone 1GM/50ML D5W 50 ML IV ONE (23:15)
[2021-10-20] MEDS ORDERED: DEXTROSE (50%) 50ML SYRG IV PRN (23:15)
[2021-10-20] MEDS ORDERED: ONDANSETRON HCL 4 MG/2 ML VIAL IV PRN (23:15)
[2021-10-20] MEDS ORDERED: DOCUSATE SOD 100 MG CAP PO PRN (23:15)
[2021-10-20 23:26] VITALS: BP 130/75
[2021-10-20] MEDS ORDERED: MORPHINE SULFATE INJ 2 MG/ml SYRG IV PRN (23:30)
[2021-10-20] MEDS ORDERED: NITROGLYCERIN 0.4 MG SL TAB SL PRN (23:30)
[2021-10-21] MEDS ORDERED: SODIUM CHLOR 0.9% PF (SALINE LOCK) 10ML VIAL/SYR IV SCH (06:00)
[2021-10-21] MEDS: InsuLIN REG 1unit/0.01ml Soln (100units/ml) SC SCH ×4 (06:23→21:23)
[2021-10-21] MEDS: methylPREDNISolone SOD SUCC 40 MG/ML VL IV SCH ×3 (06:24→21:17)
[2021-10-21] MEDS: ACCU-CHEK COMFORT CURVE STRIP VI SCH ×4 (06:31→21:17)
[2021-10-21 07:37] LABS: Basophils # (auto) 0 10 ^3/uL (0-0.2); Basophils % (auto) 0.1 % (0.0-2.0); Eosinophils # (auto) 0 10 ^3/uL (0-0.8); Eosinophils % (auto) 0.1 % (0.0-7.0); Hematocrit 44.6 % (36.0-46.0); Lymphocytes # (auto) 1.6 10 ^3/uL (0.4-5.4); Lymphocytes % (auto) 25.8 % (10.0-50.0); Mean Corpuscular Hemoglobin 31.6 pg (28.0-32.0); Mean Corpuscular Hgb Conc. 33.6 g/dL (32.0-36.0); Mean Corpuscular Volume 94.3 fL (80.0-100.0); Monocytes # (auto) 0 10 ^3/uL (0-1.3); Monocytes % (auto) 0.6 % (0.0-12.0); Neutrophils # (auto) 4.6 10 ^3/uL (1.6-8.6); Neutrophils % (auto) 73.4 % (37.0-80.0); Nucleated Red Blood Cells % 0.1 %; Red Blood Cells 4.72 10^6/uL (4.0-5.20); Red Cell Distribution Width 13.1 % (11.8-14.3); White Blood Cell 6.3 10^3/uL (4.4-10.8)
[2021-10-21 07:51] LABS: Albumin 3.3 g/dL (3.4-5.0); BUN/Creatinine Ratio 17.2; Calcium 9.3 mg/dL (8.5-10.1); Potassium 4.3 mmol/L (3.5-5.1)
[2021-10-21 07:53] LABS: Bilirubin, Total 0.4 mg/dL (0.2-1.0); Total Protein 6.7 g/dL (6.4-8.2)
[2021-10-21 08:41] VITALS: BP 123/84
[2021-10-21] MEDS: FAMOTIDINE (10MG/ML) 2ML VL IV SCH ×2 (10:54→21:18)
[2021-10-21] MEDS: ASCORBIC ACID 500 MG TAB PO SCH ×2 (10:55→21:17)
[2021-10-21] MEDS: MULTIPLE VITAMIN TAB PO SCH (10:55)
[2021-10-21] MEDS: ZINC SULFATE 220mg CAP or TAB PO SCH (10:56)
[2021-10-21] MEDS: ACETAMINOPHEN 325 MG TAB PO PRN ×2 (10:57→21:18)
[2021-10-21] MEDS: ENOXAPARIN SOD 40 MG/0.4 ML SYRINGE SC SCH (10:57)
[2021-10-21] MEDS: SODIUM CHLORIDE 0.9% 1,000 ML IV SCH ×2 (12:45→21:16)
[2021-10-21 13:02] VITALS: BP 129/86
[2021-10-21] MEDS: ALBUTEROL SULF 2.5 MG/0.5ML(0.5%) NEB SOLN NEB PRN ×3 (16:01→18:15)
[2021-10-21] MEDS: IPRATROPIUM BROM 0.5 MG/2.5ML INH SOL NEB PRN ×3 (16:01→18:15)
[2021-10-21 17:16] VITALS: BP 136/81
[2021-10-21] MEDS: NYSTATIN (MOUTH-THROAT) 500,000 UNITS/5 ML SUSP MT SCH ×2 (17:38→21:17)
[2021-10-21] MEDS: cefTRIAXone 1GM/50ML D5W 50 ML IV SCH (21:03)
[2021-10-21] MEDS: AZITHROMYCIN 500MG/ 250ML 250 ML IV SCH (22:13)
[2021-10-22] MEDS: ALBUTEROL SULF 2.5 MG/0.5ML(0.5%) NEB SOLN NEB PRN ×6 (02:15→23:00)
[2021-10-22] MEDS: IPRATROPIUM BROM 0.5 MG/2.5ML INH SOL NEB PRN ×6 (02:15→23:00)
[2021-10-22 05:00] VITALS: BP 107/66
[2021-10-22] MEDS: methylPREDNISolone SOD SUCC 40 MG/ML VL IV SCH ×3 (06:25→22:06)
[2021-10-22] MEDS: ACCU-CHEK COMFORT CURVE STRIP VI SCH ×4 (06:26→22:07)
[2021-10-22] MEDS: NYSTATIN (MOUTH-THROAT) 500,000 UNITS/5 ML SUSP MT SCH ×4 (06:26→22:07)
[2021-10-22] MEDS: InsuLIN REG 1unit/0.01ml Soln (100units/ml) SC SCH ×5 (06:27→22:18)
[2021-10-22] MEDS: ACETAMINOPHEN 325 MG TAB PO PRN ×2 (07:51→13:13)
[2021-10-22 08:00] VITALS: BP 141/83
[2021-10-22] MEDS: SODIUM CHLORIDE 0.9% 1,000 ML IV SCH ×2 (08:45→17:18)
[2021-10-22 09:00] VITALS: BP 141/83
[2021-10-22] MEDS: MULTIPLE VITAMIN TAB PO SCH (10:37)
[2021-10-22] MEDS: FAMOTIDINE (10MG/ML) 2ML VL IV SCH ×2 (10:37→22:06)
[2021-10-22] MEDS: ENOXAPARIN SOD 40 MG/0.4 ML SYRINGE SC SCH (10:37)
[2021-10-22] MEDS: ASCORBIC ACID 500 MG TAB PO SCH ×2 (10:37→22:07)
[2021-10-22] MEDS: ZINC SULFATE 220mg CAP or TAB PO SCH (10:37)
[2021-10-22 13:00] VITALS: BP 140/78
[2021-10-22 17:12] VITALS: BP 135/80
[2021-10-22] MEDS: HYDROcodone-ACET 5/325MG TAB PO PRN ×2 (17:50→22:08)
[2021-10-22 22:00] VITALS: BP 132/86
[2021-10-22] MEDS: cefTRIAXone 1GM/50ML D5W 50 ML IV SCH (22:06)
[2021-10-22] MEDS: AZITHROMYCIN 500MG/ 250ML 250 ML IV SCH (22:07)
[2021-10-23] MEDS: IPRATROPIUM BROM 0.5 MG/2.5ML INH SOL NEB PRN ×2 (03:03→09:22)
[2021-10-23] MEDS: ALBUTEROL SULF 2.5 MG/0.5ML(0.5%) NEB SOLN NEB PRN ×2 (03:03→09:22)
[2021-10-23] MEDS: SODIUM CHLORIDE 0.9% 1,000 ML IV SCH (04:45)
[2021-10-23 05:00] VITALS: BP 124/80
[2021-10-23] MEDS: NYSTATIN (MOUTH-THROAT) 500,000 UNITS/5 ML SUSP MT SCH ×2 (05:25→11:34)
[2021-10-23] MEDS: methylPREDNISolone SOD SUCC 40 MG/ML VL IV SCH (05:25)
[2021-10-23] MEDS: ACCU-CHEK COMFORT CURVE STRIP VI SCH ×2 (05:26→11:34)
[2021-10-23] MEDS: HYDROcodone-ACET 5/325MG TAB PO PRN (05:27)
[2021-10-23] MEDS: InsuLIN REG 1unit/0.01ml Soln (100units/ml) SC SCH ×2 (06:36→11:49)
[2021-10-23 08:00] VITALS: BP 115/79
[2021-10-23 09:26] VITALS: BP 115/79
[2021-10-23] MEDS ORDERED: NYS5LQ MT (09:31)
[2021-10-23] MEDS ORDERED: AZIT500T66 PO (09:31)
[2021-10-23] MEDS ORDERED: METH4PAK PO (09:31)
[2021-10-23] MEDS: ASCORBIC ACID 500 MG TAB PO SCH (10:11)
[2021-10-23] MEDS: ZINC SULFATE 220mg CAP or TAB PO SCH (10:11)
[2021-10-23] MEDS: FAMOTIDINE (10MG/ML) 2ML VL IV SCH (10:11)
[2021-10-23] MEDS: MULTIPLE VITAMIN TAB PO SCH (10:11)
[2021-10-23] MEDS: ENOXAPARIN SOD 40 MG/0.4 ML SYRINGE SC SCH (10:11)
[2021-10-23 12:06] VITALS: BP 115/79
[2021-10-23 13:00] VITALS: BP 139/94
== END 2021-10-23 12:53 | disposition home or self-care (01) | DRG 189 ==
LOC: ER 17:44 → EDBD 17:44 → TELE 23:19 → TELE-EAST 10-21 08:45
PROVIDERS: ADMIT Nurse Practitioner Family; ATTEND Family Medicine
DX: J96.21 Acute and chronic respiratory failure with hypoxia (principal); J18.9 Pneumonia, unspecified organism; J44.1 Chronic obstructive pulmonary disease with (acute) exacerbation; J98.11 Atelectasis; J84.112 Idiopathic pulmonary fibrosis; E11.65 Type 2 diabetes mellitus with hyperglycemia; Z20.822 Contact with and (suspected) exposure to COVID-19; E78.5 Hyperlipidemia, unspecified; I10 Essential (primary) hypertension; K21.9 Gastro-esophageal reflux disease without esophagitis; Z79.4 Long term (current) use of insulin; Z79.84 Long term (current) use of oral hypoglycemic drugs; Z79.899 Other long term (current) drug therapy; Z80.9 Family history of malignant neoplasm, unspecified; Z82.0 Family history of epilepsy and other diseases of the nervous system; Z82.49 Family history of ischemic heart disease and other diseases of the circulatory system; Z86.16 Personal history of COVID-19; Z87.891 Personal history of nicotine dependence; Z90.49 Acquired absence of other specified parts of digestive tract
CPT/HCPCS: 36415; 71045; 80053; 82962; 83735; 84484; 85025; 85379; 87040; 87081; 93005; 93970; 94640; 96365; 96368; 96375; G0378; J0696; J1815; J3490

== ENCOUNTER 2022-02-08 16:56 | Inpatient (IN) | payer MEDICARE, MEDICAID ==
[~2022-02-08] VITALS: Ht 160 cm; Wt 77.6 kg
[~2022-02-08 16:56] MED LIST changes: -ATOR10TA PO; -AZIT500I9 IV; +AZIT500T66 PO; -BUDE1AER4 IN; -DEXT1SYP9 PO; -LEVO500T31 PO; -LEVO750T64 PO; -LOSA25TA38 PO; +METH4PAK PO; -PRED20TA2 PO; -UMEC1INH IN
[2022-02-08 17:36] LABS: Basophils # (auto) 0 10 ^3/uL (0-0.2); Basophils % (auto) 0.4 % (0.0-2.0); Eosinophils # (auto) 0.1 10 ^3/uL (0-0.8); Hematocrit 46.4 % (36.0-46.0); Hemoglobin 15.4 g/dL (12.2-16.2); Lymphocytes # (auto) 2.5 10 ^3/uL (0.4-5.4); Mean Corpuscular Hemoglobin 31.3 pg (28.0-32.0); Mean Corpuscular Hgb Conc. 33.2 g/dL (32.0-36.0); Mean Corpuscular Volume 94.3 fL (80.0-100.0); Monocytes # (auto) 0.4 10 ^3/uL (0-1.3); Monocytes % (auto) 5.5 % (0.0-12.0); Neutrophils # (auto) 4.9 10 ^3/uL (1.6-8.6); Neutrophils % (auto) 62.1 % (37.0-80.0); Nucleated Red Blood Cells % 0.2 %; Red Blood Cells 4.92 10^6/uL (4.0-5.20); Red Cell Distribution Width 13.3 % (11.8-14.3)
[2022-02-08 17:51] LABS: Albumin 4.4 g/dL (3.4-5.0); Calcium 10.2 mg/dL (8.5-10.1)
[2022-02-08 17:54] LABS: BUN/Creatinine Ratio 17.6; Bilirubin, Total 0.4 mg/dL (0.2-1.0); Total Protein 7.6 g/dL (6.4-8.2)
[2022-02-08] MEDS ORDERED: methylPREDNISolone SOD SUCC 125 MG/2 ML VL IV ONE (18:30)
[2022-02-08 18:59] LABS: Lactic Acid w/Reflex 3.1 mmol/L (0.4-2.0)
[2022-02-08] MEDS ORDERED: DOCUSATE SOD 100 MG CAP PO PRN (23:15)
[2022-02-08] MEDS ORDERED: ONDANSETRON HCL 4 MG/2 ML VIAL IV PRN (23:15)
[2022-02-08] MEDS ORDERED: HYDROcodone-ACET 5/325MG TAB PO PRN (23:15)
[2022-02-08] MEDS ORDERED: DEXTROSE (50%) 50ML SYRG IV PRN (23:15)
[2022-02-08 23:34] VITALS: BP 159/95
[2022-02-09] MEDS ORDERED: MORPHINE SULFATE INJ 2 MG/ml SYRG IV PRN (00:15)
[2022-02-09] MEDS ORDERED: NITROGLYCERIN 0.4 MG SL TAB SL PRN (00:15)
[2022-02-09] MEDS: SODIUM CHLOR 0.9% PF (SALINE LOCK) 10ML VIAL/SYR IV SCH ×3 (06:00→22:12)
[2022-02-09] MEDS: ALBUTEROL SULF 2.5 MG/0.5ML(0.5%) NEB SOLN NEB PRN ×3 (06:04→19:15)
[2022-02-09] MEDS: IPRATROPIUM BROM 0.5 MG/2.5ML INH SOL NEB PRN ×3 (06:05→19:15)
[2022-02-09 06:42] LABS: Urine Bacteria NONE SEEN /hpf (None Seen); Urine Blood Negative /uL (Negative); Urine Mucus FEW (None Seen); Urine Specific Gravity 1.032 (1.001-1.035); Urine WBC 3 /hpf (0 - 5)
[2022-02-09 06:47] LABS: Basophils # (auto) 0 10 ^3/uL (0-0.2); Basophils % (auto) 0.4 % (0.0-2.0); Eosinophils # (auto) 0 10 ^3/uL (0-0.8); Eosinophils % (auto) 0.2 % (0.0-7.0); Hematocrit 42.8 % (36.0-46.0); Hemoglobin 14.5 g/dL (12.2-16.2); Lymphocytes # (auto) 1.1 10 ^3/uL (0.4-5.4); Lymphocytes % (auto) 24.5 % (10.0-50.0); Mean Corpuscular Hemoglobin 31.9 pg (28.0-32.0); Mean Corpuscular Hgb Conc. 33.8 g/dL (32.0-36.0); Mean Corpuscular Volume 94.3 fL (80.0-100.0); Monocytes # (auto) 0.1 10 ^3/uL (0-1.3); Monocytes % (auto) 1.3 % (0.0-12.0); Neutrophils # (auto) 3.4 10 ^3/uL (1.6-8.6); Neutrophils % (auto) 73.6 % (37.0-80.0); Nucleated Red Blood Cells % 0.1 %; Red Blood Cells 4.53 10^6/uL (4.0-5.20); White Blood Cell 4.6 10^3/uL (4.4-10.8)
[2022-02-09 06:54] LABS: Calcium 9.5 mg/dL (8.5-10.1); Potassium 4.6 mmol/L (3.5-5.1)
[2022-02-09 06:59] LABS: Albumin 4.1 g/dL (3.4-5.0); BUN/Creatinine Ratio 25.3; Bilirubin, Total 0.2 mg/dL (0.2-1.0); Total Protein 7.3 g/dL (6.4-8.2)
[2022-02-09] MEDS: methylPREDNISolone SOD SUCC 40 MG/ML VL IV SCH ×3 (08:17→22:06)
[2022-02-09] MEDS: InsuLIN REG 1unit/0.01ml Soln (100units/ml) SC SCH ×4 (08:17→22:20)
[2022-02-09] MEDS ORDERED: FAMOTIDINE (10MG/ML) 2ML VL IV SCH (10:00)
[2022-02-09] MEDS: ACCU-CHEK COMFORT CURVE STRIP VI SCH ×4 (11:32→22:20)
[2022-02-09] MEDS: FAMOTIDINE (10MG/ML) 2ML VL IV SCH ×2 (12:16→22:06)
[2022-02-09] MEDS: ACETAMINOPHEN 325 MG TAB PO PRN (12:29)
[2022-02-09] MEDS ORDERED: PRE5T PO (17:26)
[2022-02-09] MEDS ORDERED: UMEC1AER INH (17:26)
[2022-02-09] MEDS ORDERED: ALBU108A5 INH (17:27)
[2022-02-09 22:00] VITALS: BP 139/69
[2022-02-09] MEDS: INSULIN LANTUS (GLARGINE) 1 /0.01ml (100units/ml) SC SCH (22:19)
[2022-02-10 05:00] VITALS: BP 127/79
[2022-02-10] MEDS: methylPREDNISolone SOD SUCC 40 MG/ML VL IV SCH ×3 (05:44→21:50)
[2022-02-10] MEDS: InsuLIN REG 1unit/0.01ml Soln (100units/ml) SC SCH ×4 (05:52→21:58)
[2022-02-10] MEDS: ACCU-CHEK COMFORT CURVE STRIP VI SCH ×4 (05:54→21:50)
[2022-02-10] MEDS: SODIUM CHLOR 0.9% PF (SALINE LOCK) 10ML VIAL/SYR IV SCH ×3 (06:00→21:49)
[2022-02-10 09:00] VITALS: BP 132/76
[2022-02-10] MEDS: FAMOTIDINE (10MG/ML) 2ML VL IV SCH ×2 (09:30→21:49)
[2022-02-10] MEDS: INSULIN LANTUS (GLARGINE) 1 /0.01ml (100units/ml) SC SCH ×2 (09:39→21:59)
[2022-02-10] MEDS: ACETAMINOPHEN 325 MG TAB PO PRN (09:42)
[2022-02-10 10:12] LABS: BUN/Creatinine Ratio 22.9; Calcium 9.6 mg/dL (8.5-10.1); Potassium 4.7 mmol/L (3.5-5.1)
[2022-02-10 13:00] VITALS: BP 135/88
[2022-02-10] MEDS: ALBUTEROL SULF 2.5 MG/0.5ML(0.5%) NEB SOLN NEB PRN ×2 (13:05→22:15)
[2022-02-10] MEDS: IPRATROPIUM BROM 0.5 MG/2.5ML INH SOL NEB PRN ×2 (13:05→22:15)
[2022-02-10] MEDS ORDERED: guaiFENesin 200 MG/10 ML UD PO PRN (16:00)
[2022-02-10 16:52] VITALS: BP 151/89
[2022-02-10 22:00] VITALS: BP 135/82
[2022-02-11 04:57] VITALS: BP 109/67
[2022-02-11] MEDS: SODIUM CHLOR 0.9% PF (SALINE LOCK) 10ML VIAL/SYR IV SCH (06:18)
[2022-02-11] MEDS: methylPREDNISolone SOD SUCC 40 MG/ML VL IV SCH (06:18)
[2022-02-11] MEDS: InsuLIN REG 1unit/0.01ml Soln (100units/ml) SC SCH ×2 (06:19→11:19)
[2022-02-11] MEDS: ACCU-CHEK COMFORT CURVE STRIP VI SCH ×2 (06:19→08:48)
[2022-02-11] MEDS: FAMOTIDINE (10MG/ML) 2ML VL IV SCH (08:47)
[2022-02-11] MEDS: INSULIN LANTUS (GLARGINE) 1 /0.01ml (100units/ml) SC SCH (08:58)
[2022-02-11 09:00] VITALS: BP 134/82
[2022-02-11] MEDS ORDERED: PRED20TA2 PO (10:53)
[2022-02-11] MEDS ORDERED: DOXY-286 PO (10:53)
[2022-02-11] MEDS ORDERED: FUROSEMIDE 20 MG/2 ML VIAL IV ONE (11:00)
[2022-02-11 11:25] VITALS: BP 150/87
[2022-02-11 13:00] VITALS: BP 150/87
== END 2022-02-11 13:50 | disposition home or self-care (01) | DRG 189 ==
LOC: ER 16:56 → TELE 02-09 00:14 → TELE-WESTW 02-09 15:53 → TELE-CENTR 02-09 18:35 → CENTRAL 02-10 12:29
PROVIDERS: ADMIT Nurse Practitioner Family; ATTEND Internal Medicine
DX: J96.21 Acute and chronic respiratory failure with hypoxia (principal); J44.1 Chronic obstructive pulmonary disease with (acute) exacerbation; J84.112 Idiopathic pulmonary fibrosis; I10 Essential (primary) hypertension; B18.2 Chronic viral hepatitis C; E11.65 Type 2 diabetes mellitus with hyperglycemia; E66.9 Obesity, unspecified; E78.5 Hyperlipidemia, unspecified; K21.9 Gastro-esophageal reflux disease without esophagitis; Z20.822 Contact with and (suspected) exposure to COVID-19; R07.81 Pleurodynia; R79.89 Other specified abnormal findings of blood chemistry; Z82.0 Family history of epilepsy and other diseases of the nervous system; Z80.9 Family history of malignant neoplasm, unspecified; Z82.49 Family history of ischemic heart disease and other diseases of the circulatory system; Z87.891 Personal history of nicotine dependence; Z68.30 Body mass index [BMI] 30.0-30.9, adult; Z99.81 Dependence on supplemental oxygen; Z90.49 Acquired absence of other specified parts of digestive tract
CPT/HCPCS: 36415; 71045; 80048; 80053; 81001; 82962; 83036; 83605; 83880; 84443; 84484; 85025; 87040; 93005; 93306; 94640; 96374; 96375; 99291; G0378; J1815; J3490

== ENCOUNTER 2022-03-07 17:45 | Inpatient (IN) | payer MEDICARE, MEDICAID ==
[~2022-03-07] VITALS: Ht 160 cm; Wt 68.9 kg
[~2022-03-07 17:45] MED LIST changes: +ALBU108A5 INH; -AZIT500T66 PO; +DOXY-286 PO; -METH4PAK PO; -NYS5LQ MT; +PRED20TA2 PO; +UMEC1AER INH
[2022-03-07] MEDS ORDERED: ALBUTEROL SULF 2.5 MG/0.5ML(0.5%) NEB SOLN HHN ONE (18:00)
[2022-03-07] MEDS ORDERED: IPRATROPIUM BROM 0.5 MG/2.5ML INH SOL HHN ONE (18:00)
[2022-03-07] MEDS ORDERED: methylPREDNISolone SOD SUCC 125 MG/2 ML VL IV ONE (18:00)
[2022-03-07 19:02] LABS: BUN/Creatinine Ratio 16.4; Calcium 9.6 mg/dL (8.5-10.1); Potassium 3.9 mmol/L (3.5-5.1)
[2022-03-07 19:05] LABS: Bilirubin, Total 0.4 mg/dL (0.2-1.0); Total Protein 7.1 g/dL (6.4-8.2)
[2022-03-07 19:08] LABS: Basophils # (auto) 0 10 ^3/uL (0-0.2); Basophils % (auto) 0.6 % (0.0-2.0); Eosinophils # (auto) 0 10 ^3/uL (0-0.8); Eosinophils % (auto) 0.6 % (0.0-7.0); Hematocrit 43.1 % (36.0-46.0); Hemoglobin 14.5 g/dL (12.2-16.2); Lactic Acid w/Reflex 5.8 mmol/L (0.4-2.0); Lymphocytes # (auto) 1.8 10 ^3/uL (0.4-5.4); Lymphocytes % (auto) 32.9 % (10.0-50.0); Mean Corpuscular Hemoglobin 31.7 pg (28.0-32.0); Mean Corpuscular Hgb Conc. 33.7 g/dL (32.0-36.0); Mean Corpuscular Volume 94.1 fL (80.0-100.0); Monocytes # (auto) 0.2 10 ^3/uL (0-1.3); Monocytes % (auto) 4.1 % (0.0-12.0); Neutrophils # (auto) 3.4 10 ^3/uL (1.6-8.6); Neutrophils % (auto) 61.8 % (37.0-80.0); Nucleated Red Blood Cells % 0.2 %; Red Blood Cells 4.58 10^6/uL (4.0-5.20); Red Cell Distribution Width 12.8 % (11.8-14.3); White Blood Cell 5.4 10^3/uL (4.4-10.8)
[2022-03-07 19:35] LABS: Magnesium 0.8 mg/dL (1.6-2.6)
[2022-03-07 20:02] LABS: Urine Bacteria NONE SEEN /hpf (None Seen); Urine Blood Negative /uL (Negative); Urine Specific Gravity 1.008 (1.001-1.035); Urine WBC 1 /hpf (0 - 5)
[2022-03-07 20:30] VITALS: BP 121/78
[2022-03-07] MEDS ORDERED: ONDANSETRON HCL 4 MG/2 ML VIAL IV PRN (20:30)
[2022-03-07] MEDS ORDERED: NITROGLYCERIN 0.4 MG SL TAB SL PRN (20:30)
[2022-03-07] MEDS ORDERED: SODIUM CHLORIDE 0.9% 500 ML IV ONE (20:30)
[2022-03-07] MEDS ORDERED: cefTRIAXone 1GM/50ML D5W 50 ML IV ONE (20:30)
[2022-03-07] MEDS ORDERED: MORPHINE SULFATE INJ 2 MG/ml SYRG IV PRN (20:30)
[2022-03-07] MEDS ORDERED: DEXTROSE (50%) 50ML SYRG IV PRN (20:30)
[2022-03-07] MEDS ORDERED: EPINEPHrine HCL 0.5 ML NEB NEB ONE (20:45)
[2022-03-07] MEDS ORDERED: EPINEPHrine HCL 0.5 ML NEB ONE (20:51)
[2022-03-07] MEDS: MAGNESIUM SULFATE 1GM/100ML 100 ML IV SCH (21:20)
[2022-03-07] MEDS: methylPREDNISolone SOD SUCC 125 MG/2 ML VL IV SCH (23:01)
[2022-03-07] MEDS: ACCU-CHEK COMFORT CURVE STRIP VI SCH (23:01)
[2022-03-07] MEDS: InsuLIN REG 1unit/0.01ml Soln (100units/ml) SC SCH (23:05)
[2022-03-08] MEDS: MAGNESIUM SULFATE 1GM/100ML 100 ML IV SCH ×2 (01:20→02:43)
[2022-03-08] MEDS: ACETAMINOPHEN 325 MG TAB PO PRN ×2 (02:11→17:28)
[2022-03-08] MEDS ORDERED: MAGNESIUM SULFATE 1GM/100ML 100 ML IV ONE (02:42)
[2022-03-08 06:27] LABS: Basophils # (auto) 0 10 ^3/uL (0-0.2); Basophils % (auto) 0.2 % (0.0-2.0); Eosinophils # (auto) 0 10 ^3/uL (0-0.8); Eosinophils % (auto) 0.1 % (0.0-7.0); Hematocrit 40.1 % (36.0-46.0); Hemoglobin 13.6 g/dL (12.2-16.2); Lymphocytes # (auto) 0.8 10 ^3/uL (0.4-5.4); Lymphocytes % (auto) 14.5 % (10.0-50.0); Mean Corpuscular Hemoglobin 31.7 pg (28.0-32.0); Mean Corpuscular Hgb Conc. 33.9 g/dL (32.0-36.0); Mean Corpuscular Volume 93.4 fL (80.0-100.0); Monocytes # (auto) 0.1 10 ^3/uL (0-1.3); Monocytes % (auto) 2.1 % (0.0-12.0); Neutrophils # (auto) 4.6 10 ^3/uL (1.6-8.6); Neutrophils % (auto) 83.1 % (37.0-80.0); Nucleated Red Blood Cells % 0.1 %; Red Blood Cells 4.29 10^6/uL (4.0-5.20); Red Cell Distribution Width 12.8 % (11.8-14.3); White Blood Cell 5.5 10^3/uL (4.4-10.8)
[2022-03-08 06:35] LABS: Albumin 3.5 g/dL (3.4-5.0); Calcium 8.6 mg/dL (8.5-10.1); Potassium 4.2 mmol/L (3.5-5.1)
[2022-03-08 06:38] LABS: BUN/Creatinine Ratio 14.7; Bilirubin, Total 0.2 mg/dL (0.2-1.0); Total Protein 6.5 g/dL (6.4-8.2)
[2022-03-08] MEDS: ALBUTEROL SULF 2.5 MG/0.5ML(0.5%) NEB SOLN NEB PRN ×2 (06:45→18:47)
[2022-03-08] MEDS: IPRATROPIUM BROM 0.5 MG/2.5ML INH SOL NEB PRN ×2 (06:45→18:47)
[2022-03-08] MEDS: ACCU-CHEK COMFORT CURVE STRIP VI SCH ×4 (06:57→22:26)
[2022-03-08] MEDS: InsuLIN REG 1unit/0.01ml Soln (100units/ml) SC SCH ×4 (06:59→22:28)
[2022-03-08] MEDS ORDERED: cefTRIAXone 1GM/50ML D5W 50 ML IV SCH (09:00)
[2022-03-08] MEDS ORDERED: predniSONE 20 MG TAB PO SCH (10:00)
[2022-03-08] MEDS: DULoxetine HCL 30 MG CAP PO SCH (10:20)
[2022-03-08] MEDS: ENOXAPARIN SOD 40 MG/0.4 ML SYRINGE SC SCH (10:20)
[2022-03-08] MEDS: methylPREDNISolone SOD SUCC 125 MG/2 ML VL IV SCH (10:21)
[2022-03-08 15:38] VITALS: BP 139/75
[2022-03-08] MEDS: methylPREDNISolone SOD SUCC 40 MG/ML VL IV SCH (21:12)
[2022-03-08] MEDS: DOXYCYCLINE 100 MG TAB/CAP PO SCH (21:13)
[2022-03-08] MEDS: BUDESONIDE (INHALATION) 0.5 MG/2 ML NEB NEB SCH (22:29)
[2022-03-08] MEDS: IPRATROPIUM BROM 0.5 MG/2.5ML INH SOL NEB SCH (22:29)
[2022-03-08] MEDS: ALBUTEROL SULF 2.5 MG/0.5ML(0.5%) NEB SOLN NEB SCH (22:29)
[2022-03-09] MEDS: IPRATROPIUM BROM 0.5 MG/2.5ML INH SOL NEB SCH ×6 (02:39→22:15)
[2022-03-09] MEDS: ALBUTEROL SULF 2.5 MG/0.5ML(0.5%) NEB SOLN NEB SCH ×6 (02:39→22:15)
[2022-03-09] MEDS: ACETAMINOPHEN 325 MG TAB PO PRN (04:27)
[2022-03-09 05:11] VITALS: BP 113/79
[2022-03-09 06:19] LABS: BUN/Creatinine Ratio 23.1; Calcium 9.1 mg/dL (8.5-10.1); Magnesium 2.2 mg/dL (1.6-2.6); Potassium 4.4 mmol/L (3.5-5.1)
[2022-03-09] MEDS: ACCU-CHEK COMFORT CURVE STRIP VI SCH ×4 (06:23→22:12)
[2022-03-09] MEDS: InsuLIN REG 1unit/0.01ml Soln (100units/ml) SC SCH ×4 (06:24→22:13)
[2022-03-09] MEDS: BUDESONIDE (INHALATION) 0.5 MG/2 ML NEB NEB SCH ×2 (07:06→22:15)
[2022-03-09] MEDS: DULoxetine HCL 30 MG CAP PO SCH (08:51)
[2022-03-09] MEDS: ENOXAPARIN SOD 40 MG/0.4 ML SYRINGE SC SCH (08:51)
[2022-03-09] MEDS: methylPREDNISolone SOD SUCC 40 MG/ML VL IV SCH ×2 (08:52→22:13)
[2022-03-09] MEDS: cefTRIAXone 1GM/50ML D5W 50 ML IV SCH (08:53)
[2022-03-09 09:39] VITALS: BP 120/76
[2022-03-09] MEDS: DOXYCYCLINE 100 MG TAB/CAP PO SCH ×2 (10:14→22:13)
[2022-03-09] MEDS: guaiFENesin-DM 100/10mg/5ml SYR PO PRN ×2 (11:46→18:01)
[2022-03-09 16:37] VITALS: BP 135/85
[2022-03-09 22:00] VITALS: BP 131/86
[2022-03-09] MEDS: BISACODYL 5 MG EC TAB PO PRN (22:13)
[2022-03-10] MEDS: ALBUTEROL SULF 2.5 MG/0.5ML(0.5%) NEB SOLN NEB SCH ×6 (02:14→21:18)
[2022-03-10] MEDS: IPRATROPIUM BROM 0.5 MG/2.5ML INH SOL NEB SCH ×6 (02:14→21:18)
[2022-03-10 05:00] VITALS: BP 121/84
[2022-03-10] MEDS: ACETAMINOPHEN 325 MG TAB PO PRN (05:01)
[2022-03-10] MEDS: ACCU-CHEK COMFORT CURVE STRIP VI SCH ×4 (06:30→22:06)
[2022-03-10] MEDS: InsuLIN REG 1unit/0.01ml Soln (100units/ml) SC SCH ×4 (06:32→22:12)
[2022-03-10 08:00] VITALS: BP 124/77
[2022-03-10] MEDS: methylPREDNISolone SOD SUCC 40 MG/ML VL IV SCH ×2 (08:45→22:12)
[2022-03-10] MEDS: cefTRIAXone 1GM/50ML D5W 50 ML IV SCH (08:46)
[2022-03-10] MEDS: MORPHINE SULFATE INJ 2 MG/ml SYRG IV PRN (08:46)
[2022-03-10] MEDS: ENOXAPARIN SOD 40 MG/0.4 ML SYRINGE SC SCH (08:47)
[2022-03-10] MEDS: DOXYCYCLINE 100 MG TAB/CAP PO SCH ×2 (09:46→22:12)
[2022-03-10] MEDS: DULoxetine HCL 30 MG CAP PO SCH (09:47)
[2022-03-10 12:00] VITALS: BP 148/88
[2022-03-10] MEDS: BUDESONIDE (INHALATION) 0.5 MG/2 ML NEB NEB SCH ×2 (13:27→17:38)
[2022-03-10 16:00] VITALS: BP 129/79
[2022-03-10] MEDS: BISACODYL 5 MG EC TAB PO PRN (17:16)
[2022-03-10 19:05] VITALS: BP 129/79
[2022-03-10 22:00] VITALS: BP 143/88
[2022-03-10] MEDS ORDERED: MELATONIN 5 MG TAB PO PRN (22:00)
[2022-03-11] MEDS: ALBUTEROL SULF 2.5 MG/0.5ML(0.5%) NEB SOLN NEB SCH ×6 (02:39→23:10)
[2022-03-11] MEDS: IPRATROPIUM BROM 0.5 MG/2.5ML INH SOL NEB SCH ×6 (02:40→23:10)
[2022-03-11 05:00] VITALS: BP 126/81
[2022-03-11] MEDS: ACCU-CHEK COMFORT CURVE STRIP VI SCH ×4 (06:40→22:29)
[2022-03-11] MEDS: InsuLIN REG 1unit/0.01ml Soln (100units/ml) SC SCH ×4 (06:43→22:30)
[2022-03-11] MEDS: MORPHINE SULFATE INJ 2 MG/ml SYRG IV PRN (06:48)
[2022-03-11 09:00] VITALS: BP 122/75
[2022-03-11] MEDS: ENOXAPARIN SOD 40 MG/0.4 ML SYRINGE SC SCH (09:00)
[2022-03-11] MEDS: methylPREDNISolone SOD SUCC 40 MG/ML VL IV SCH ×2 (09:00→22:32)
[2022-03-11] MEDS: cefTRIAXone 1GM/50ML D5W 50 ML IV SCH (09:00)
[2022-03-11] MEDS: DULoxetine HCL 30 MG CAP PO SCH (09:01)
[2022-03-11] MEDS: DOXYCYCLINE 100 MG TAB/CAP PO SCH ×2 (09:02→22:33)
[2022-03-11] MEDS: BUDESONIDE (INHALATION) 0.5 MG/2 ML NEB NEB SCH ×2 (10:06→18:08)
[2022-03-11 12:55] VITALS: BP 131/93
[2022-03-11 17:00] VITALS: BP 147/101
[2022-03-11 20:00] VITALS: BP 133/89
[2022-03-11] MEDS: ACETAMINOPHEN 325 MG TAB PO PRN (20:10)
[2022-03-11] MEDS: BISACODYL 5 MG EC TAB PO PRN (20:15)
[2022-03-11 22:00] VITALS: BP 133/89
[2022-03-12] MEDS: ALBUTEROL SULF 2.5 MG/0.5ML(0.5%) NEB SOLN NEB SCH ×4 (01:56→14:18)
[2022-03-12] MEDS: IPRATROPIUM BROM 0.5 MG/2.5ML INH SOL NEB SCH ×4 (01:56→14:18)
[2022-03-12 05:00] VITALS: BP 119/80
[2022-03-12] MEDS: BUDESONIDE (INHALATION) 0.5 MG/2 ML NEB NEB SCH (05:40)
[2022-03-12] MEDS: ACCU-CHEK COMFORT CURVE STRIP VI SCH ×2 (06:19→12:16)
[2022-03-12] MEDS: InsuLIN REG 1unit/0.01ml Soln (100units/ml) SC SCH ×2 (06:37→12:28)
[2022-03-12 08:46] VITALS: BP 104/67
[2022-03-12] MEDS: methylPREDNISolone SOD SUCC 40 MG/ML VL IV SCH (09:06)
[2022-03-12] MEDS: DULoxetine HCL 30 MG CAP PO SCH (09:07)
[2022-03-12] MEDS: ENOXAPARIN SOD 40 MG/0.4 ML SYRINGE SC SCH (09:07)
[2022-03-12] MEDS: DOXYCYCLINE 100 MG TAB/CAP PO SCH (09:07)
[2022-03-12] MEDS: cefTRIAXone 1GM/50ML D5W 50 ML IV SCH (09:07)
[2022-03-12] MEDS ORDERED: PRED20TA2 PO (12:08)
[2022-03-12 13:00] VITALS: BP 114/89
== END 2022-03-12 15:30 | disposition home or self-care (01) | DRG 189 ==
LOC: EDBD 17:45 → ER 17:45 → EDUNIT# 17:45 → TELE 20:24 → TELE-WESTW 03-08 15:32 → WEST WING 03-09 14:06
PROVIDERS: ADMIT Nurse Practitioner; ATTEND Internal Medicine
DX: J96.21 Acute and chronic respiratory failure with hypoxia (principal); J44.1 Chronic obstructive pulmonary disease with (acute) exacerbation; N39.0 Urinary tract infection, site not specified; J98.11 Atelectasis; J84.10 Pulmonary fibrosis, unspecified; I10 Essential (primary) hypertension; E11.65 Type 2 diabetes mellitus with hyperglycemia; K21.9 Gastro-esophageal reflux disease without esophagitis; Z20.822 Contact with and (suspected) exposure to COVID-19; E83.42 Hypomagnesemia; E78.5 Hyperlipidemia, unspecified; Z82.0 Family history of epilepsy and other diseases of the nervous system; Z82.49 Family history of ischemic heart disease and other diseases of the circulatory system; Z87.891 Personal history of nicotine dependence
CPT/HCPCS: 36415; 71045; 80048; 80053; 81001; 82962; 83605; 83735; 83880; 84484; 85025; 85379; 87040; 87081; 87426; 93005; 94640; 94644; 96365; 96366; 96367; 96372; 96375; 96376; G0378; J0696; J1815

== ENCOUNTER 2022-05-03 15:33 | Inpatient (IN) | payer MEDICARE, MEDICAID ==
[~2022-05-03] VITALS: Ht 160 cm; Wt 70.1 kg
[2022-05-03] MEDS ORDERED: methylPREDNISolone SOD SUCC 125 MG/2 ML VL IV ONE (15:45)
[2022-05-03] MEDS ORDERED: IPRATROPIUM BROM 0.5 MG/2.5ML INH SOL HHN ONE (15:45)
[2022-05-03] MEDS ORDERED: ALBUTEROL SULF 2.5 MG/0.5ML(0.5%) NEB SOLN HHN ONE (15:45)
[2022-05-03 16:19] LABS: Hematocrit 47.2 % (36.0-46.0); Hemoglobin 15.5 g/dL (12.2-16.2); Mean Corpuscular Hemoglobin 30.7 pg (28.0-32.0); Mean Corpuscular Hgb Conc. 32.8 g/dL (32.0-36.0); Mean Corpuscular Volume 93.7 fL (80.0-100.0); Red Blood Cells 5.04 10^6/uL (4.0-5.20); Red Cell Distribution Width 13.9 % (11.8-14.3); White Blood Cell 11.6 10^3/uL (4.4-10.8)
[2022-05-03 16:30] LABS: Basophils % (manual) 0 (0.0-2.0); Blast Cells 0; Eosinophils % (manual) 0 (0-7); Promyelocytes % 0; Reactive Lymphocytes 0
[2022-05-03 17:02] LABS: Potassium 3.9 mmol/L (3.5-5.1)
[2022-05-03 17:03] LABS: BUN/Creatinine Ratio 24.8
[2022-05-03 17:04] LABS: Albumin 3.9 g/dL (3.4-5.0); Bilirubin, Total 0.7 mg/dL (0.2-1.0); Calcium 9.9 mg/dL (8.5-10.1); Magnesium 1.5 mg/dL (1.6-2.6); Total Protein 6.9 g/dL (6.4-8.2)
[2022-05-03 17:51] LABS: Band Neutrophils % (manual) 6; Metamyelocytes % 4; Myelocytes % 2
[2022-05-03 17:52] LABS: Lymphocytes % (manual) 14 (10.0-50.0); Monocytes % (manual) 3 (0-12)
[2022-05-03 20:29] LABS: Lactic Acid w/Reflex 2.8 mmol/L (0.4-2.0)
[2022-05-03] MEDS ORDERED: DOCUSATE SOD 100 MG CAP PO PRN (22:00)
[2022-05-03] MEDS ORDERED: ONDANSETRON HCL 4 MG/2 ML VIAL IV PRN (22:00)
[2022-05-03] MEDS ORDERED: NITROGLYCERIN 0.4 MG SL TAB SL PRN (22:00)
[2022-05-03] MEDS: methylPREDNISolone SOD SUCC 40 MG/ML VL IV SCH (22:00)
[2022-05-03] MEDS ORDERED: ACETAMINOPHEN 325 MG TAB PO PRN (22:00)
[2022-05-03] MEDS ORDERED: MAGNESIUM SULFATE 1GM/100ML 100 ML IV ONE (22:00)
[2022-05-03] MEDS ORDERED: cefTRIAXone 1GM/50ML D5W 50 ML IV ONE (22:00)
[2022-05-03] MEDS ORDERED: MORPHINE SULFATE INJ 2 MG/ml SYRG IV PRN (22:00)
[2022-05-03] MEDS ORDERED: DEXTROSE (50%) 50ML SYRG IV PRN (22:15)
[2022-05-03] MEDS: FAMOTIDINE (10MG/ML) 2ML VL IV SCH (22:43)
[2022-05-03] MEDS: SODIUM CHLORIDE 0.9% 1,000 ML IV SCH (22:44)
[2022-05-04] MEDS: IPRATROPIUM BROM 0.5 MG/2.5ML INH SOL NEB PRN ×2 (02:00→11:59)
[2022-05-04] MEDS: ALBUTEROL SULF 2.5 MG/0.5ML(0.5%) NEB SOLN NEB PRN ×2 (02:00→11:59)
[2022-05-04 05:00] VITALS: BP 128/79
[2022-05-04 05:17] LABS: Basophils # (auto) 0 10 ^3/uL (0-0.2); Basophils % (auto) 0.2 % (0.0-2.0); Eosinophils # (auto) 0 10 ^3/uL (0-0.8); Eosinophils % (auto) 0.1 % (0.0-7.0); Hematocrit 43.9 % (36.0-46.0); Hemoglobin 14.8 g/dL (12.2-16.2); Lymphocytes # (auto) 0.5 10 ^3/uL (0.4-5.4); Lymphocytes % (auto) 8.9 % (10.0-50.0); Mean Corpuscular Hemoglobin 31.5 pg (28.0-32.0); Mean Corpuscular Hgb Conc. 33.6 g/dL (32.0-36.0); Mean Corpuscular Volume 93.7 fL (80.0-100.0); Monocytes # (auto) 0.1 10 ^3/uL (0-1.3); Monocytes % (auto) 1.1 % (0.0-12.0); Neutrophils # (auto) 5.4 10 ^3/uL (1.6-8.6); Neutrophils % (auto) 89.7 % (37.0-80.0); Nucleated Red Blood Cells % 0.1 %; Red Blood Cells 4.69 10^6/uL (4.0-5.20); Red Cell Distribution Width 13.8 % (11.8-14.3)
[2022-05-04 05:31] LABS: Albumin 3.6 g/dL (3.4-5.0); Calcium 8.8 mg/dL (8.5-10.1); Potassium 4.2 mmol/L (3.5-5.1)
[2022-05-04 05:32] LABS: Lactic Acid w/Reflex 4.5 mmol/L (0.4-2.0)
[2022-05-04 05:36] LABS: BUN/Creatinine Ratio 19.5; Bilirubin, Total 0.6 mg/dL (0.2-1.0)
[2022-05-04] MEDS: IPRATROPIUM BROM 0.5 MG/2.5ML INH SOL NEB SCH ×4 (06:00→23:29)
[2022-05-04] MEDS: ALBUTEROL SULF 2.5 MG/0.5ML(0.5%) NEB SOLN NEB SCH ×4 (06:00→23:29)
[2022-05-04] MEDS: ACCU-CHEK COMFORT CURVE STRIP VI SCH ×4 (06:03→22:06)
[2022-05-04] MEDS: methylPREDNISolone SOD SUCC 40 MG/ML VL IV SCH ×3 (06:08→22:06)
[2022-05-04] MEDS: InsuLIN REG 1unit/0.01ml Soln (100units/ml) SC SCH ×4 (06:09→22:13)
[2022-05-04 08:00] VITALS: BP 115/75
[2022-05-04] MEDS: FAMOTIDINE (10MG/ML) 2ML VL IV SCH ×2 (09:02→22:05)
[2022-05-04] MEDS: ENOXAPARIN SOD 40 MG/0.4 ML SYRINGE SC SCH (09:02)
[2022-05-04] MEDS: cefTRIAXone 1GM/50ML D5W 50 ML IV SCH (09:02)
[2022-05-04] MEDS: HYDROcodone-ACET 5/325MG TAB PO PRN (12:01)
[2022-05-04 12:13] VITALS: BP 137/93
[2022-05-04] MEDS: SODIUM CHLORIDE 0.9% 1,000 ML IV SCH (15:33)
[2022-05-04 17:00] VITALS: BP 118/85
[2022-05-04 22:00] VITALS: BP 129/82
[2022-05-05] VITALS (7 sets, daily range): BP systolic 126–157; BP diastolic 85–98
[2022-05-05] MEDS: HYDROcodone-ACET 5/325MG TAB PO PRN (04:50)
[2022-05-05 05:50] LABS: Basophils # (auto) 0 10 ^3/uL (0-0.2); Basophils % (auto) 0.4 % (0.0-2.0); Eosinophils # (auto) 0 10 ^3/uL (0-0.8); Eosinophils % (auto) 0.1 % (0.0-7.0); Lymphocytes # (auto) 0.5 10 ^3/uL (0.4-5.4); Lymphocytes % (auto) 7.9 % (10.0-50.0); Monocytes # (auto) 0.2 10 ^3/uL (0-1.3); Neutrophils # (auto) 5.9 10 ^3/uL (1.6-8.6); Neutrophils % (auto) 88.6 % (37.0-80.0); Nucleated Red Blood Cells % 0.2 %; Red Blood Cells 4.41 10^6/uL (4.0-5.20); White Blood Cell 6.7 10^3/uL (4.4-10.8)
[2022-05-05 05:51] LABS: Hematocrit 41.4 % (36.0-46.0); Mean Corpuscular Hemoglobin 31.8 pg (28.0-32.0); Mean Corpuscular Hgb Conc. 33.9 g/dL (32.0-36.0); Red Cell Distribution Width 13.8 % (11.8-14.3)
[2022-05-05 06:07] LABS: Albumin 3.4 g/dL (3.4-5.0); Calcium 9.1 mg/dL (8.5-10.1); Potassium 4.1 mmol/L (3.5-5.1)
[2022-05-05 06:12] LABS: Bilirubin, Total 0.4 mg/dL (0.2-1.0); Total Protein 6.6 g/dL (6.4-8.2)
[2022-05-05] MEDS: ACCU-CHEK COMFORT CURVE STRIP VI SCH ×4 (06:24→21:59)
[2022-05-05] MEDS: methylPREDNISolone SOD SUCC 40 MG/ML VL IV SCH ×3 (06:25→22:11)
[2022-05-05] MEDS: InsuLIN REG 1unit/0.01ml Soln (100units/ml) SC SCH ×4 (06:28→22:11)
[2022-05-05] MEDS: IPRATROPIUM BROM 0.5 MG/2.5ML INH SOL NEB SCH ×3 (07:09→19:36)
[2022-05-05] MEDS: ALBUTEROL SULF 2.5 MG/0.5ML(0.5%) NEB SOLN NEB SCH ×3 (07:09→19:36)
[2022-05-05] MEDS: FAMOTIDINE (10MG/ML) 2ML VL IV SCH ×2 (09:48→22:11)
[2022-05-05] MEDS: ENOXAPARIN SOD 40 MG/0.4 ML SYRINGE SC SCH (09:48)
[2022-05-05] MEDS: cefTRIAXone 1GM/50ML D5W 50 ML IV SCH (09:48)
[2022-05-05] MEDS: SODIUM CHLORIDE 0.9% 1,000 ML IV SCH (09:54)
[2022-05-05] MEDS: IBUPROFEN 600 MG TAB PO PRN (16:55)
[2022-05-05] MEDS ORDERED: LISINOPRIL 10 MG TAB PO ONE (18:30)
[2022-05-06] VITALS (7 sets, daily range): BP systolic 128–163; BP diastolic 73–105
[2022-05-06] MEDS: ALBUTEROL SULF 2.5 MG/0.5ML(0.5%) NEB SOLN NEB SCH ×6 (00:26→21:40)
[2022-05-06] MEDS: IPRATROPIUM BROM 0.5 MG/2.5ML INH SOL NEB SCH ×6 (00:26→21:40)
[2022-05-06] MEDS: ALBUTEROL SULF 2.5 MG/0.5ML(0.5%) NEB SOLN NEB PRN (03:55)
[2022-05-06] MEDS: IPRATROPIUM BROM 0.5 MG/2.5ML INH SOL NEB PRN (03:55)
[2022-05-06] MEDS: SODIUM CHLORIDE 0.9% 1,000 ML IV SCH ×2 (04:57→19:35)
[2022-05-06] MEDS: ACCU-CHEK COMFORT CURVE STRIP VI SCH ×4 (06:04→22:30)
[2022-05-06] MEDS: methylPREDNISolone SOD SUCC 40 MG/ML VL IV SCH ×3 (06:04→22:29)
[2022-05-06] MEDS: InsuLIN REG 1unit/0.01ml Soln (100units/ml) SC SCH ×4 (06:04→22:28)
[2022-05-06 07:32] LABS: Basophils # (auto) 0 10 ^3/uL (0-0.2); Basophils % (auto) 0.1 % (0.0-2.0); Eosinophils # (auto) 0 10 ^3/uL (0-0.8); Hematocrit 43.1 % (36.0-46.0); Hemoglobin 14.2 g/dL (12.2-16.2); Lymphocytes # (auto) 0.6 10 ^3/uL (0.4-5.4); Lymphocytes % (auto) 8.9 % (10.0-50.0); Mean Corpuscular Hemoglobin 31.2 pg (28.0-32.0); Mean Corpuscular Hgb Conc. 32.9 g/dL (32.0-36.0); Mean Corpuscular Volume 94.9 fL (80.0-100.0); Monocytes # (auto) 0.3 10 ^3/uL (0-1.3); Monocytes % (auto) 4.4 % (0.0-12.0); Neutrophils # (auto) 5.7 10 ^3/uL (1.6-8.6); Neutrophils % (auto) 86.6 % (37.0-80.0); Nucleated Red Blood Cells % 0.1 %; Red Blood Cells 4.54 10^6/uL (4.0-5.20); Red Cell Distribution Width 13.6 % (11.8-14.3); White Blood Cell 6.6 10^3/uL (4.4-10.8)
[2022-05-06 08:04] LABS: Albumin 3.7 g/dL (3.4-5.0); BUN/Creatinine Ratio 23.1; Bilirubin, Total 0.4 mg/dL (0.2-1.0); Calcium 9.7 mg/dL (8.5-10.1); Potassium 4.3 mmol/L (3.5-5.1)
[2022-05-06] MEDS: cefTRIAXone 1GM/50ML D5W 50 ML IV SCH (09:11)
[2022-05-06] MEDS: FAMOTIDINE (10MG/ML) 2ML VL IV SCH ×2 (09:12→22:29)
[2022-05-06] MEDS: LISINOPRIL 10 MG TAB PO SCH (09:13)
[2022-05-06] MEDS: ENOXAPARIN SOD 40 MG/0.4 ML SYRINGE SC SCH (09:13)
[2022-05-06] MEDS ORDERED: POLYETHYLENE GLYCOL 17 GM PWDR PO PRN (11:00)
[2022-05-06] MEDS ORDERED: hydrALAZINE HCL 20 MG/ML VL IV PRN ×2 (12:00→12:15)
[2022-05-06] MEDS: BISACODYL 5 MG EC TAB PO SCH (12:12)
[2022-05-06] MEDS: THROAT LOZENGES(CEPASTAT) MT PRN ×2 (14:11→17:32)
[2022-05-06] MEDS ORDERED: ALBUTEROL MEDNEB 2.5 mg/3ml NEB ONE ×2 (18:02→21:36)
[2022-05-07] MEDS ORDERED: ALBUTEROL MEDNEB 2.5 mg/3ml NEB ONE ×5 (01:54→22:00)
[2022-05-07] MEDS: IPRATROPIUM BROM 0.5 MG/2.5ML INH SOL NEB SCH ×6 (01:56→22:08)
[2022-05-07] MEDS: ALBUTEROL SULF 2.5 MG/0.5ML(0.5%) NEB SOLN NEB SCH ×6 (01:56→22:08)
[2022-05-07 05:05] VITALS: BP 154/102
[2022-05-07] MEDS: IBUPROFEN 600 MG TAB PO PRN (05:59)
[2022-05-07 06:04] LABS: Mean Corpuscular Hemoglobin 31.5 pg (28.0-32.0); Mean Corpuscular Hgb Conc. 33.3 g/dL (32.0-36.0); Mean Corpuscular Volume 94.8 fL (80.0-100.0); Red Blood Cells 4.74 10^6/uL (4.0-5.20); Red Cell Distribution Width 13.9 % (11.8-14.3); White Blood Cell 6.3 10^3/uL (4.4-10.8)
[2022-05-07 06:20] LABS: Basophils % (manual) 0 (0.0-2.0); Blast Cells 0; Eosinophils % (manual) 0 (0-7); Metamyelocytes % 0; Myelocytes % 0; Promyelocytes % 0; Reactive Lymphocytes 0
[2022-05-07 06:25] LABS: Albumin 3.9 g/dL (3.4-5.0); BUN/Creatinine Ratio 19.2; Calcium 9.2 mg/dL (8.5-10.1); Potassium 4.4 mmol/L (3.5-5.1)
[2022-05-07 06:28] LABS: Bilirubin, Total 0.3 mg/dL (0.2-1.0); Total Protein 7.1 g/dL (6.4-8.2)
[2022-05-07] MEDS: InsuLIN REG 1unit/0.01ml Soln (100units/ml) SC SCH ×3 (06:42→22:24)
[2022-05-07] MEDS: ACCU-CHEK COMFORT CURVE STRIP VI SCH ×4 (06:46→22:19)
[2022-05-07] MEDS: methylPREDNISolone SOD SUCC 40 MG/ML VL IV SCH ×2 (06:46→22:20)
[2022-05-07 09:00] VITALS: BP 160/96
[2022-05-07 09:24] LABS: Band Neutrophils % (manual) 11; Lymphocytes % (manual) 18 (10.0-50.0); Monocytes % (manual) 3 (0-12)
[2022-05-07] MEDS: ENOXAPARIN SOD 40 MG/0.4 ML SYRINGE SC SCH (09:24)
[2022-05-07] MEDS: cefTRIAXone 1GM/50ML D5W 50 ML IV SCH (09:24)
[2022-05-07] MEDS: LISINOPRIL 10 MG TAB PO SCH (09:24)
[2022-05-07] MEDS: FAMOTIDINE (10MG/ML) 2ML VL IV SCH (09:24)
[2022-05-07] MEDS ORDERED: NYSTATIN (MOUTH-THROAT) 500,000 UNITS/5 ML SUSP MT ONE (11:45)
[2022-05-07] MEDS ORDERED: FUROSEMIDE 20 MG/2 ML VIAL IV ONE (11:45)
[2022-05-07] MEDS ORDERED: POTASSIUM CHL 20 Meq TABLET PO ONE (11:45)
[2022-05-07] MEDS: DOXYCYCLINE 100MG/250ML 250 ML IV SCH ×2 (12:31→23:23)
[2022-05-07 13:00] VITALS: BP 147/92
[2022-05-07] MEDS ORDERED: DEXTROSE (50%) 50ML SYRG IV PRN (13:15)
[2022-05-07 17:00] VITALS: BP 144/105
[2022-05-07 17:14] LABS: Urine Specific Gravity 1.012 (1.001-1.035)
[2022-05-07 17:15] LABS: Urine Blood Negative /uL (Negative)
[2022-05-07] MEDS: NYSTATIN (MOUTH-THROAT) 500,000 UNITS/5 ML SUSP MT SCH ×2 (17:46→22:19)
[2022-05-07 22:00] VITALS: BP 142/87
[2022-05-07] MEDS: BISACODYL 5 MG EC TAB PO SCH (22:20)
[2022-05-07] MEDS: HYDROcodone-ACET 5/325MG TAB PO PRN (22:20)
[2022-05-07] MEDS: THROAT LOZENGES(CEPASTAT) MT PRN (22:21)
[2022-05-08] MEDS: IPRATROPIUM BROM 0.5 MG/2.5ML INH SOL NEB SCH ×6 (01:54→22:13)
[2022-05-08] MEDS: ALBUTEROL SULF 2.5 MG/0.5ML(0.5%) NEB SOLN NEB SCH ×6 (01:54→22:14)
[2022-05-08] MEDS ORDERED: ALBUTEROL MEDNEB 2.5 mg/3ml NEB ONE ×3 (01:56→06:17)
[2022-05-08 04:43] VITALS: BP 137/82
[2022-05-08 05:47] LABS: Hematocrit 42.3 % (36.0-46.0); Hemoglobin 14.4 g/dL (12.2-16.2); Mean Corpuscular Hemoglobin 31.9 pg (28.0-32.0); Mean Corpuscular Volume 93.9 fL (80.0-100.0); Red Blood Cells 4.51 10^6/uL (4.0-5.20); Red Cell Distribution Width 13.8 % (11.8-14.3); White Blood Cell 5.9 10^3/uL (4.4-10.8)
[2022-05-08 05:53] LABS: Basophils % (manual) 0 (0.0-2.0); Blast Cells 0; Eosinophils % (manual) 0 (0-7); Metamyelocytes % 0; Promyelocytes % 0; Reactive Lymphocytes 0
[2022-05-08 06:02] LABS: Potassium 4.7 mmol/L (3.5-5.1)
[2022-05-08 06:11] LABS: Albumin 3.6 g/dL (3.4-5.0); BUN/Creatinine Ratio 25.6; Bilirubin, Total 0.4 mg/dL (0.2-1.0); Calcium 9.1 mg/dL (8.5-10.1); Total Protein 6.7 g/dL (6.4-8.2)
[2022-05-08] MEDS: ACCU-CHEK COMFORT CURVE STRIP VI SCH ×4 (06:27→21:58)
[2022-05-08] MEDS: NYSTATIN (MOUTH-THROAT) 500,000 UNITS/5 ML SUSP MT SCH ×4 (06:27→21:58)
[2022-05-08] MEDS: InsuLIN REG 1unit/0.01ml Soln (100units/ml) SC SCH ×4 (06:30→22:01)
[2022-05-08] MEDS: THROAT LOZENGES(CEPASTAT) MT PRN (06:34)
[2022-05-08 08:32] LABS: Band Neutrophils % (manual) 21; Lymphocytes % (manual) 16 (10.0-50.0); Monocytes % (manual) 3 (0-12); Myelocytes % 1
[2022-05-08 09:00] VITALS: BP 126/91
[2022-05-08] MEDS: cefTRIAXone 1GM/50ML D5W 50 ML IV SCH (09:08)
[2022-05-08] MEDS: methylPREDNISolone SOD SUCC 40 MG/ML VL IV SCH (09:08)
[2022-05-08] MEDS: DULoxetine HCL 30 MG CAP PO SCH (09:08)
[2022-05-08] MEDS: ENOXAPARIN SOD 40 MG/0.4 ML SYRINGE SC SCH (09:08)
[2022-05-08] MEDS: FAMOTIDINE 20 MG TAB PO SCH (09:09)
[2022-05-08] MEDS: LISINOPRIL 10 MG TAB PO SCH (09:09)
[2022-05-08] MEDS: DOXYCYCLINE 100MG/250ML 250 ML IV SCH ×2 (11:32→23:33)
[2022-05-08 13:00] VITALS: BP 135/96
[2022-05-08 17:00] VITALS: BP 142/87
[2022-05-08] MEDS ORDERED: cloNIDine HCL 0.1 MG TAB PO PRN (17:30)
[2022-05-08 22:00] VITALS: BP 135/86
[2022-05-09] MEDS: ALBUTEROL SULF 2.5 MG/0.5ML(0.5%) NEB SOLN NEB SCH ×4 (02:32→15:00)
[2022-05-09] MEDS: IPRATROPIUM BROM 0.5 MG/2.5ML INH SOL NEB SCH ×4 (02:32→15:01)
[2022-05-09 05:00] VITALS: BP 121/74
[2022-05-09 05:50] LABS: Hematocrit 42.5 % (36.0-46.0); Hemoglobin 14.1 g/dL (12.2-16.2); Mean Corpuscular Hgb Conc. 33.2 g/dL (32.0-36.0); Mean Corpuscular Volume 93.5 fL (80.0-100.0); Red Blood Cells 4.55 10^6/uL (4.0-5.20); Red Cell Distribution Width 13.6 % (11.8-14.3); White Blood Cell 7.5 10^3/uL (4.4-10.8)
[2022-05-09 05:53] LABS: Basophils % (manual) 0 (0.0-2.0); Blast Cells 0; Metamyelocytes % 0; Myelocytes % 0; Promyelocytes % 0
[2022-05-09 06:08] LABS: Albumin 3.3 g/dL (3.4-5.0); Calcium 8.9 mg/dL (8.5-10.1); Potassium 4.1 mmol/L (3.5-5.1)
[2022-05-09] MEDS: ACCU-CHEK COMFORT CURVE STRIP VI SCH ×2 (06:09→11:30)
[2022-05-09] MEDS: InsuLIN REG 1unit/0.01ml Soln (100units/ml) SC SCH ×2 (06:09→11:39)
[2022-05-09] MEDS: NYSTATIN (MOUTH-THROAT) 500,000 UNITS/5 ML SUSP MT SCH ×2 (06:09→11:40)
[2022-05-09 06:11] LABS: BUN/Creatinine Ratio 27.8; Bilirubin, Total 0.5 mg/dL (0.2-1.0); Total Protein 6.1 g/dL (6.4-8.2)
[2022-05-09 08:01] LABS: Band Neutrophils % (manual) 2; Eosinophils % (manual) 1 (0-7); Lymphocytes % (manual) 41 (10.0-50.0); Monocytes % (manual) 3 (0-12); Reactive Lymphocytes 2
[2022-05-09] MEDS: DULoxetine HCL 30 MG CAP PO SCH (09:12)
[2022-05-09] MEDS: cefTRIAXone 1GM/50ML D5W 50 ML IV SCH (09:12)
[2022-05-09] MEDS: FAMOTIDINE 20 MG TAB PO SCH (09:13)
[2022-05-09] MEDS: LISINOPRIL 10 MG TAB PO SCH (09:13)
[2022-05-09 09:18] VITALS: BP 121/97
[2022-05-09] MEDS ORDERED: NYS5LQ MT (09:55)
[2022-05-09] MEDS ORDERED: ALB5IS NEB (09:55)
[2022-05-09] MEDS ORDERED: IPR002IS HHN (09:55)
[2022-05-09] MEDS ORDERED: DOXY-338 PO (09:55)
[2022-05-09] MEDS ORDERED: PRED20TA2 PO (09:55)
[2022-05-09] MEDS ORDERED: predniSONE 20 MG TAB PO SCH (10:00)
[2022-05-09] MEDS: DOXYCYCLINE 100MG/250ML 250 ML IV SCH (11:39)
[2022-05-09 12:25] VITALS: BP 133/87
[2022-05-09 13:40] VITALS: BP 133/87
== END 2022-05-09 15:55 | disposition home or self-care (01) | DRG 196 ==
LOC: EDUNIT# 15:33 → ER 15:33 → EDBD 15:33 → TELE 22:02 → TELE-CENTR 23:20 → CENTRAL 05-07 11:36
PROVIDERS: ADMIT Nurse Practitioner Family; ATTEND Internal Medicine
DX: J84.112 Idiopathic pulmonary fibrosis (principal); J18.9 Pneumonia, unspecified organism; J96.21 Acute and chronic respiratory failure with hypoxia; J98.11 Atelectasis; E87.20 Acidosis, unspecified; I10 Essential (primary) hypertension; E78.5 Hyperlipidemia, unspecified; Z20.822 Contact with and (suspected) exposure to COVID-19; E83.42 Hypomagnesemia; E11.9 Type 2 diabetes mellitus without complications; D72.829 Elevated white blood cell count, unspecified; J43.9 Emphysema, unspecified; Z87.891 Personal history of nicotine dependence; Z86.16 Personal history of COVID-19; Z82.49 Family history of ischemic heart disease and other diseases of the circulatory system; Z82.0 Family history of epilepsy and other diseases of the nervous system; Z80.9 Family history of malignant neoplasm, unspecified; Z79.899 Other long term (current) drug therapy; Z79.84 Long term (current) use of oral hypoglycemic drugs; Z90.49 Acquired absence of other specified parts of digestive tract
CPT/HCPCS: 36415; 71045; 80053; 81003; 82962; 83605; 83735; 83880; 84484; 85007; 85025; 85027; 87040; 87426; 87804; 93005; 94640; 94644; 96365; 96367; 96375; G0378; J0696; J1815; J3490

== ENCOUNTER 2022-06-13 16:47 | Inpatient (IN) | payer MEDICARE, MEDICAID ==
[~2022-06-13] VITALS: Ht 160 cm; Wt 69.5 kg
[~2022-06-13 16:47] MED LIST changes: +ALB5IS NEB; +DOXY-338 PO; +IPR002IS HHN; +NYS5LQ MT
[2022-06-13] MEDS ORDERED: ALBUTEROL MEDNEB 2.5 mg/3ml NEB ONE ×2 (18:07→22:08)
[2022-06-13] MEDS ORDERED: IPRATROPIUM BROM 0.5 MG/2.5ML INH SOL NEB ONE (18:15)
[2022-06-13] MEDS ORDERED: methylPREDNISolone SOD SUCC 125 MG/2 ML VL IV ONE (18:15)
[2022-06-13] MEDS ORDERED: ALBUTEROL SULF 2.5 MG/0.5ML(0.5%) NEB SOLN NEB ONE ×2 (18:15→22:15)
[2022-06-13 18:52] LABS: Basophils # (auto) 0 10 ^3/uL (0-0.2); Basophils % (auto) 0.4 % (0.0-2.0); Eosinophils # (auto) 0.1 10 ^3/uL (0-0.8); Eosinophils % (auto) 0.6 % (0.0-7.0); Hematocrit 43.8 % (36.0-46.0); Hemoglobin 14.6 g/dL (12.2-16.2); Lymphocytes # (auto) 3.8 10 ^3/uL (0.4-5.4); Mean Corpuscular Hemoglobin 31.4 pg (28.0-32.0); Mean Corpuscular Hgb Conc. 33.4 g/dL (32.0-36.0); Mean Corpuscular Volume 93.9 fL (80.0-100.0); Monocytes # (auto) 0.6 10 ^3/uL (0-1.3); Monocytes % (auto) 6.3 % (0.0-12.0); Neutrophils # (auto) 4.5 10 ^3/uL (1.6-8.6); Neutrophils % (auto) 50.7 % (37.0-80.0); Nucleated Red Blood Cells % 0.2 %; Red Blood Cells 4.66 10^6/uL (4.0-5.20); Red Cell Distribution Width 13.5 % (11.8-14.3)
[2022-06-13 18:55] LABS: Albumin 3.9 g/dL (3.4-5.0); Calcium 9.8 mg/dL (8.5-10.1); Magnesium 1.3 mg/dL (1.6-2.6); Potassium 3.6 mmol/L (3.5-5.1)
[2022-06-13 18:57] LABS: BUN/Creatinine Ratio 17.4
[2022-06-13 19:08] LABS: Bilirubin, Total 0.3 mg/dL (0.2-1.0); Total Protein 6.9 g/dL (6.4-8.2)
[2022-06-13] MEDS ORDERED: TEMAZEPAM 15 MG CAP PO PRN (21:30)
[2022-06-13] MEDS ORDERED: ONDANSETRON HCL 4 MG/2 ML VIAL IV PRN (21:30)
[2022-06-13] MEDS ORDERED: DEXTROSE (50%) 50ML SYRG IV PRN (21:30)
[2022-06-13] MEDS ORDERED: AZITHROMYCIN 500MG/ 250ML 250 ML IV ONE (23:45)
[2022-06-14] MEDS: methylPREDNISolone SOD SUCC 125 MG/2 ML VL IV SCH ×3 (00:41→22:43)
[2022-06-14] MEDS: InsuLIN REG 1unit/0.01ml Soln (100units/ml) SC SCH ×5 (00:44→22:50)
[2022-06-14] MEDS: ACCU-CHEK COMFORT CURVE STRIP VI SCH ×5 (00:47→22:50)
[2022-06-14 02:07] VITALS: BP 135/81
[2022-06-14 05:23] LABS: Basophils # (auto) 0 10 ^3/uL (0-0.2); Basophils % (auto) 0.2 % (0.0-2.0); Eosinophils # (auto) 0 10 ^3/uL (0-0.8); Hematocrit 43.3 % (36.0-46.0); Hemoglobin 14.6 g/dL (12.2-16.2); Lymphocytes # (auto) 0.8 10 ^3/uL (0.4-5.4); Lymphocytes % (auto) 12.8 % (10.0-50.0); Mean Corpuscular Hemoglobin 31.7 pg (28.0-32.0); Mean Corpuscular Hgb Conc. 33.6 g/dL (32.0-36.0); Mean Corpuscular Volume 94.1 fL (80.0-100.0); Monocytes # (auto) 0.1 10 ^3/uL (0-1.3); Monocytes % (auto) 2.1 % (0.0-12.0); Neutrophils # (auto) 5.6 10 ^3/uL (1.6-8.6); Neutrophils % (auto) 84.9 % (37.0-80.0); Nucleated Red Blood Cells % 0.1 %; Red Cell Distribution Width 13.3 % (11.8-14.3); White Blood Cell 6.6 10^3/uL (4.4-10.8)
[2022-06-14 05:34] LABS: BUN/Creatinine Ratio 18.4
[2022-06-14] MEDS ORDERED: ALBUTEROL MEDNEB 2.5 mg/3ml NEB ONE ×3 (06:02→17:48)
[2022-06-14] MEDS: IPRATROPIUM BROM 0.5 MG/2.5ML INH SOL NEB SCH ×3 (06:26→17:52)
[2022-06-14] MEDS: ALBUTEROL SULF 2.5 MG/0.5ML(0.5%) NEB SOLN NEB SCH ×3 (06:26→17:52)
[2022-06-14] MEDS: ACETAMINOPHEN 325 MG TAB PO PRN (08:06)
[2022-06-14] MEDS: DULoxetine HCL 30 MG CAP PO SCH (10:07)
[2022-06-14] MEDS: ENOXAPARIN SOD 40 MG/0.4 ML SYRINGE SC SCH (10:08)
[2022-06-14] MEDS: PANTOPRAZOLE 40 MG TAB PO SCH (10:08)
[2022-06-14] MEDS ORDERED: cefTRIAXone 1GM/50ML D5W 50 ML IV ONE (10:15)
[2022-06-14 11:06] LABS: Urine Bacteria NONE SEEN /hpf (None Seen); Urine Blood Negative /uL (Negative); Urine Specific Gravity 1.014 (1.001-1.035); Urine WBC <1 /hpf (0 - 5)
[2022-06-14] MEDS: AZITHROMYCIN 500MG/ 250ML 250 ML IV SCH (22:44)
[2022-06-15 05:21] LABS: BUN/Creatinine Ratio 22.2; Calcium 9.3 mg/dL (8.5-10.1); Potassium 4.3 mmol/L (3.5-5.1)
[2022-06-15 05:24] LABS: Basophils # (auto) 0 10 ^3/uL (0-0.2); Basophils % (auto) 0.1 % (0.0-2.0); Eosinophils # (auto) 0 10 ^3/uL (0-0.8); Hematocrit 44.5 % (36.0-46.0); Hemoglobin 14.6 g/dL (12.2-16.2); Lymphocytes # (auto) 0.7 10 ^3/uL (0.4-5.4); Lymphocytes % (auto) 8.7 % (10.0-50.0); Mean Corpuscular Hemoglobin 31.1 pg (28.0-32.0); Mean Corpuscular Hgb Conc. 32.8 g/dL (32.0-36.0); Mean Corpuscular Volume 94.6 fL (80.0-100.0); Monocytes # (auto) 0.2 10 ^3/uL (0-1.3); Monocytes % (auto) 2.7 % (0.0-12.0); Neutrophils # (auto) 7.3 10 ^3/uL (1.6-8.6); Neutrophils % (auto) 88.5 % (37.0-80.0); Nucleated Red Blood Cells % 0.1 %; Red Blood Cells 4.71 10^6/uL (4.0-5.20); Red Cell Distribution Width 13.4 % (11.8-14.3); White Blood Cell 8.2 10^3/uL (4.4-10.8)
[2022-06-15] MEDS ORDERED: ALBUTEROL MEDNEB 2.5 mg/3ml NEB ONE ×2 (06:03→13:18)
[2022-06-15] MEDS: ALBUTEROL SULF 2.5 MG/0.5ML(0.5%) NEB SOLN NEB SCH ×3 (06:23→18:00)
[2022-06-15] MEDS: IPRATROPIUM BROM 0.5 MG/2.5ML INH SOL NEB SCH ×2 (06:23→18:51)
[2022-06-15] MEDS: ACETAMINOPHEN 325 MG TAB PO PRN (06:41)
[2022-06-15] MEDS: InsuLIN REG 1unit/0.01ml Soln (100units/ml) SC SCH ×4 (06:46→22:10)
[2022-06-15] MEDS: ACCU-CHEK COMFORT CURVE STRIP VI SCH ×4 (07:02→21:38)
[2022-06-15] MEDS: cefTRIAXone 1GM/50ML D5W 50 ML IV SCH (10:09)
[2022-06-15] MEDS: methylPREDNISolone SOD SUCC 125 MG/2 ML VL IV SCH ×2 (12:08→21:38)
[2022-06-15] MEDS: DULoxetine HCL 30 MG CAP PO SCH (12:08)
[2022-06-15] MEDS: PANTOPRAZOLE 40 MG TAB PO SCH (12:09)
[2022-06-15 13:57] VITALS: BP 128/84
[2022-06-15] MEDS: ENOXAPARIN SOD 40 MG/0.4 ML SYRINGE SC SCH (16:21)
[2022-06-15 16:35] VITALS: BP 161/93
[2022-06-15 22:08] VITALS: BP 147/90
[2022-06-15] MEDS: AZITHROMYCIN 500MG/ 250ML 250 ML IV SCH (22:11)
[2022-06-16] VITALS (7 sets, daily range): BP systolic 130–147; BP diastolic 68–101
[2022-06-16] MEDS ORDERED: ALBUTEROL MEDNEB 2.5 mg/3ml NEB ONE ×3 (06:02→18:03)
[2022-06-16] MEDS: ACCU-CHEK COMFORT CURVE STRIP VI SCH ×4 (06:29→22:14)
[2022-06-16] MEDS: InsuLIN REG 1unit/0.01ml Soln (100units/ml) SC SCH ×4 (06:32→22:15)
[2022-06-16] MEDS: ALBUTEROL SULF 2.5 MG/0.5ML(0.5%) NEB SOLN NEB SCH ×3 (07:16→19:33)
[2022-06-16] MEDS: IPRATROPIUM BROM 0.5 MG/2.5ML INH SOL NEB SCH ×3 (07:16→19:33)
[2022-06-16 08:15] LABS: Hematocrit 44.8 % (36.0-46.0); Mean Corpuscular Hemoglobin 31.4 pg (28.0-32.0); Mean Corpuscular Hgb Conc. 33.4 g/dL (32.0-36.0); Mean Corpuscular Volume 94.1 fL (80.0-100.0); Red Blood Cells 4.76 10^6/uL (4.0-5.20); Red Cell Distribution Width 13.4 % (11.8-14.3); White Blood Cell 7.3 10^3/uL (4.4-10.8)
[2022-06-16 08:34] LABS: Potassium 3.6 mmol/L (3.5-5.1)
[2022-06-16 08:38] LABS: BUN/Creatinine Ratio 28.6; Basophils % (manual) 0 (0.0-2.0); Blast Cells 0; Calcium 9.5 mg/dL (8.5-10.1); Eosinophils % (manual) 0 (0-7); Metamyelocytes % 0; Myelocytes % 0; Promyelocytes % 0; Reactive Lymphocytes 0
[2022-06-16] MEDS: methylPREDNISolone SOD SUCC 125 MG/2 ML VL IV SCH ×2 (09:14→22:14)
[2022-06-16] MEDS: cefTRIAXone 1GM/50ML D5W 50 ML IV SCH (09:14)
[2022-06-16] MEDS: AZITHROMYCIN 500MG/ 250ML 250 ML IV SCH (09:14)
[2022-06-16] MEDS: DULoxetine HCL 30 MG CAP PO SCH (09:15)
[2022-06-16] MEDS: ENOXAPARIN SOD 40 MG/0.4 ML SYRINGE SC SCH (09:15)
[2022-06-16] MEDS: ACETAMINOPHEN 325 MG TAB PO PRN (09:15)
[2022-06-16] MEDS: PANTOPRAZOLE 40 MG TAB PO SCH (09:15)
[2022-06-16] MEDS ORDERED: DEXTROSE (50%) 50ML SYRG IV ONE (09:44)
[2022-06-16] MEDS ORDERED: ATROPINE SULF 1 MG/10ml SYR IM ONE (09:44)
[2022-06-16] MEDS ORDERED: CALCIUM CHL(10%) 100MG/ML 10ML VIAL IV ONE (09:44)
[2022-06-16 09:56] LABS: Band Neutrophils % (manual) 2; Lymphocytes % (manual) 18 (10.0-50.0); Monocytes % (manual) 2 (0-12)
[2022-06-16] MEDS ORDERED: SENNA 8.6 MG TAB PO ONE (11:45)
[2022-06-16] MEDS: SENNA 8.6 MG TAB PO SCH (22:14)
[2022-06-17 04:30] VITALS: BP 122/86
[2022-06-17] MEDS ORDERED: ALBUTEROL MEDNEB 2.5 mg/3ml NEB ONE ×3 (05:35→17:58)
[2022-06-17] MEDS: ACCU-CHEK COMFORT CURVE STRIP VI SCH ×4 (05:52→21:45)
[2022-06-17] MEDS: InsuLIN REG 1unit/0.01ml Soln (100units/ml) SC SCH ×4 (05:53→21:49)
[2022-06-17] MEDS: ALBUTEROL SULF 2.5 MG/0.5ML(0.5%) NEB SOLN NEB SCH ×3 (07:00→19:49)
[2022-06-17] MEDS: IPRATROPIUM BROM 0.5 MG/2.5ML INH SOL NEB SCH ×3 (07:00→19:49)
[2022-06-17 08:18] VITALS: BP 141/63
[2022-06-17 09:00] VITALS: BP 129/80
[2022-06-17] MEDS: cefTRIAXone 1GM/50ML D5W 50 ML IV SCH (09:21)
[2022-06-17] MEDS: PANTOPRAZOLE 40 MG TAB PO SCH (10:31)
[2022-06-17] MEDS: AZITHROMYCIN 500MG/ 250ML 250 ML IV SCH (10:31)
[2022-06-17] MEDS: DULoxetine HCL 30 MG CAP PO SCH (10:31)
[2022-06-17] MEDS: methylPREDNISolone SOD SUCC 125 MG/2 ML VL IV SCH ×2 (10:31→21:45)
[2022-06-17] MEDS: ENOXAPARIN SOD 40 MG/0.4 ML SYRINGE SC SCH (10:32)
[2022-06-17 13:00] VITALS: BP 138/91
[2022-06-17 17:00] VITALS: BP 139/88
[2022-06-17] MEDS: SENNA 8.6 MG TAB PO SCH (21:45)
[2022-06-18 05:00] VITALS: BP 119/84
[2022-06-18] MEDS ORDERED: ALBUTEROL MEDNEB 2.5 mg/3ml NEB ONE ×3 (05:40→18:09)
[2022-06-18] MEDS: IPRATROPIUM BROM 0.5 MG/2.5ML INH SOL NEB SCH ×2 (06:11→11:22)
[2022-06-18] MEDS: ALBUTEROL SULF 2.5 MG/0.5ML(0.5%) NEB SOLN NEB SCH ×2 (06:11→11:22)
[2022-06-18] MEDS: ACCU-CHEK COMFORT CURVE STRIP VI SCH ×2 (06:52→13:03)
[2022-06-18] MEDS: InsuLIN REG 1unit/0.01ml Soln (100units/ml) SC SCH ×2 (06:53→13:04)
[2022-06-18 08:44] VITALS: BP 125/83
[2022-06-18] MEDS: AZITHROMYCIN 500MG/ 250ML 250 ML IV SCH (09:33)
[2022-06-18] MEDS: cefTRIAXone 1GM/50ML D5W 50 ML IV SCH (09:33)
[2022-06-18] MEDS: PANTOPRAZOLE 40 MG TAB PO SCH (09:34)
[2022-06-18] MEDS: DULoxetine HCL 30 MG CAP PO SCH (09:34)
[2022-06-18] MEDS: ENOXAPARIN SOD 40 MG/0.4 ML SYRINGE SC SCH (09:34)
[2022-06-18] MEDS: methylPREDNISolone SOD SUCC 125 MG/2 ML VL IV SCH (09:37)
[2022-06-18] MEDS ORDERED: PRED20TA2 PO (11:09)
[2022-06-18] MEDS ORDERED: AMOX500T86 PO (11:09)
[2022-06-18 12:06] VITALS: BP 140/91
[2022-06-18 13:00] VITALS: BP 140/91
[2022-06-18] MEDS ORDERED: IPRATROPIUM BROM 0.5 MG/2.5ML INH SOL ONE (18:09)
== END 2022-06-18 17:00 | disposition home or self-care (01) | DRG 193 ==
LOC: ER 16:47 → EDUNIT# 16:47 → EDBD 16:47 → OVERFLOW 21:31 → WEST WING 06-15 11:07
PROVIDERS: ADMIT Nurse Practitioner; ATTEND Internal Medicine Pulmonary Disease
DX: J18.9 Pneumonia, unspecified organism (principal); J96.21 Acute and chronic respiratory failure with hypoxia; E11.9 Type 2 diabetes mellitus without complications; I10 Essential (primary) hypertension; J43.9 Emphysema, unspecified; E78.5 Hyperlipidemia, unspecified; Z20.822 Contact with and (suspected) exposure to COVID-19; K21.9 Gastro-esophageal reflux disease without esophagitis; Z90.49 Acquired absence of other specified parts of digestive tract; Z82.49 Family history of ischemic heart disease and other diseases of the circulatory system; Z87.891 Personal history of nicotine dependence
CPT/HCPCS: 36415; 71045; 71250; 80048; 80053; 81001; 82962; 83735; 83880; 84484; 85007; 85025; 85027; 85379; 87426; 87804; 93005; 94640; 96374; G0378; J0696; J1815

== ENCOUNTER 2022-06-23 15:49 | Inpatient (IN) | payer MEDICARE, MEDICAID ==
[~2022-06-23] VITALS: Ht 160 cm; Wt 69.9 kg
[~2022-06-23 15:49] MED LIST changes: +AMOX500T86 PO; -DOXY-286 PO
[2022-06-23 16:27] LABS: Basophils # (auto) 0.1 10 ^3/uL (0-0.2); Basophils % (auto) 0.7 % (0.0-2.0); Eosinophils # (auto) 0 10 ^3/uL (0-0.8); Eosinophils % (auto) 0.1 % (0.0-7.0); Hematocrit 46.6 % (36.0-46.0); Hemoglobin 15.7 g/dL (12.2-16.2); Lymphocytes # (auto) 1.2 10 ^3/uL (0.4-5.4); Lymphocytes % (auto) 14.1 % (10.0-50.0); Mean Corpuscular Hemoglobin 31.9 pg (28.0-32.0); Mean Corpuscular Hgb Conc. 33.7 g/dL (32.0-36.0); Mean Corpuscular Volume 94.8 fL (80.0-100.0); Monocytes # (auto) 0.2 10 ^3/uL (0-1.3); Monocytes % (auto) 2.8 % (0.0-12.0); Neutrophils % (auto) 82.3 % (37.0-80.0); Nucleated Red Blood Cells % 0.2 %; Red Blood Cells 4.92 10^6/uL (4.0-5.20); Red Cell Distribution Width 13.1 % (11.8-14.3); White Blood Cell 8.5 10^3/uL (4.4-10.8)
[2022-06-23 16:39] LABS: INR 0.96 (0.9-1.15); Partial Thromboplastin Time 24.2 sec (24.6-33.4)
[2022-06-23 16:41] LABS: Calcium 9.1 mg/dL (8.5-10.1); Potassium 4.7 mmol/L (3.5-5.1)
[2022-06-23 16:45] LABS: BUN/Creatinine Ratio 19.1; Bilirubin, Total 0.4 mg/dL (0.2-1.0); Total Protein 6.9 g/dL (6.4-8.2)
[2022-06-23] MEDS ORDERED: DexAMETHasone SOD PHOS 10MG/1ML VIAL INJ IV ONE (18:45)
[2022-06-23] MEDS ORDERED: IPRATROPIUM BROM 0.5 MG/2.5ML INH SOL NEB ONE (18:45)
[2022-06-23] MEDS ORDERED: ALBUTEROL MEDNEB 2.5 mg/3ml NEB NEB ONE (19:00)
[2022-06-23] MEDS ORDERED: ACETAMINOPHEN 325 MG TAB PO PRN (20:30)
[2022-06-23] MEDS ORDERED: ONDANSETRON HCL 4 MG/2 ML VIAL IV PRN (20:30)
[2022-06-23] MEDS ORDERED: DOCUSATE SOD 100 MG CAP PO PRN (20:30)
[2022-06-23] MEDS ORDERED: DEXTROSE (50%) 50ML SYRG IV PRN (20:30)
[2022-06-23 20:53] VITALS: BP 130/87
[2022-06-23] MEDS ORDERED: NITROGLYCERIN 0.4 MG SL TAB SL PRN (21:15)
[2022-06-23] MEDS ORDERED: MORPHINE SULFATE INJ 2 MG/ml SYRG IV PRN (21:15)
[2022-06-23] MEDS ORDERED: IBUPROFEN 600 MG TAB PO PRN (21:30)
[2022-06-23] MEDS: methylPREDNISolone SOD SUCC 40 MG/ML VL IV SCH (22:00)
[2022-06-23] MEDS: FAMOTIDINE (10MG/ML) 2ML VL IV SCH (22:00)
[2022-06-23] MEDS: SODIUM CHLOR 0.9% PF (SALINE LOCK) 10ML VIAL/SYR IV SCH (22:00)
[2022-06-24] MEDS: MAGNESIUM SULFATE 1GM/100ML 100 ML IV SCH ×4 (02:15→04:15)
[2022-06-24] MEDS: InsuLIN REG 1unit/0.01ml Soln (100units/ml) SC SCH ×4 (02:24→18:29)
[2022-06-24] MEDS: ACCU-CHEK COMFORT CURVE STRIP VI SCH ×4 (06:12→18:29)
[2022-06-24] MEDS: methylPREDNISolone SOD SUCC 40 MG/ML VL IV SCH ×3 (06:12→22:15)
[2022-06-24] MEDS: SODIUM CHLOR 0.9% PF (SALINE LOCK) 10ML VIAL/SYR IV SCH ×3 (06:14→22:15)
[2022-06-24] MEDS: HYDROcodone-ACET 5/325MG TAB PO PRN (06:25)
[2022-06-24 07:19] LABS: Potassium 4.4 mmol/L (3.5-5.1)
[2022-06-24 07:27] LABS: BUN/Creatinine Ratio 22.3; Total Protein 7.2 g/dL (6.4-8.2)
[2022-06-24 08:05] LABS: Hematocrit 47.6 % (36.0-46.0); Hemoglobin 15.8 g/dL (12.2-16.2); Mean Corpuscular Hemoglobin 31.4 pg (28.0-32.0); Mean Corpuscular Hgb Conc. 33.1 g/dL (32.0-36.0); Mean Corpuscular Volume 94.6 fL (80.0-100.0); Red Blood Cells 5.02 10^6/uL (4.0-5.20); Red Cell Distribution Width 13.3 % (11.8-14.3); White Blood Cell 8.2 10^3/uL (4.4-10.8)
[2022-06-24] MEDS ORDERED: ALBUTEROL MEDNEB 2.5 mg/3ml NEB ONE ×4 (08:06→22:43)
[2022-06-24] MEDS: ALBUTEROL SULF 2.5 MG/0.5ML(0.5%) NEB SOLN NEB PRN ×3 (08:12→22:46)
[2022-06-24] MEDS: IPRATROPIUM BROM 0.5 MG/2.5ML INH SOL NEB PRN ×3 (08:12→22:46)
[2022-06-24 08:18] LABS: Basophils % (manual) 0 (0.0-2.0); Blast Cells 0; Eosinophils % (manual) 0 (0-7); Myelocytes % 0; Promyelocytes % 0
[2022-06-24 09:21] LABS: Band Neutrophils % (manual) 6; Lymphocytes % (manual) 17 (10.0-50.0); Metamyelocytes % 1; Monocytes % (manual) 5 (0-12); Reactive Lymphocytes 1
[2022-06-24] MEDS: FAMOTIDINE (10MG/ML) 2ML VL IV SCH (10:00)
[2022-06-24 13:26] LABS: Urine Bacteria NONE SEEN /hpf (None Seen); Urine Blood Negative /uL (Negative); Urine Specific Gravity 1.016 (1.001-1.035); Urine WBC 1 /hpf (0 - 5)
[2022-06-25] MEDS: ACCU-CHEK COMFORT CURVE STRIP VI SCH ×6 (00:07→23:36)
[2022-06-25] MEDS: InsuLIN REG 1unit/0.01ml Soln (100units/ml) SC SCH ×6 (00:14→23:38)
[2022-06-25] MEDS ORDERED: ALBUTEROL MEDNEB 2.5 mg/3ml NEB ONE (06:00)
[2022-06-25] MEDS: IPRATROPIUM BROM 0.5 MG/2.5ML INH SOL NEB PRN (06:20)
[2022-06-25] MEDS: ALBUTEROL SULF 2.5 MG/0.5ML(0.5%) NEB SOLN NEB PRN (06:21)
[2022-06-25] MEDS: SODIUM CHLOR 0.9% PF (SALINE LOCK) 10ML VIAL/SYR IV SCH ×3 (06:42→20:26)
[2022-06-25] MEDS: methylPREDNISolone SOD SUCC 40 MG/ML VL IV SCH ×3 (06:52→20:26)
[2022-06-25] MEDS: HYDROcodone-ACET 5/325MG TAB PO PRN (08:27)
[2022-06-25] MEDS ORDERED: ONDANSETRON HCL 4 MG/2 ML VIAL IV PRN (08:30)
[2022-06-25] MEDS ORDERED: DEXTROSE (50%) 50ML SYRG IV PRN (09:15)
[2022-06-25] MEDS: ALBUTEROL MEDNEB 2.5 mg/3ml NEB NEB SCH ×4 (09:54→22:30)
[2022-06-25] MEDS: IPRATROPIUM BROM 0.5 MG/2.5ML INH SOL NEB SCH ×4 (09:54→22:30)
[2022-06-25] MEDS: FAMOTIDINE (10MG/ML) 2ML VL IV SCH (11:06)
[2022-06-25 13:53] LABS: Hepatitis B Surface Antibody Negative (Negative)
[2022-06-25 14:31] LABS: Hepatitis A Total Antibody Positive (Negative)
[2022-06-25 15:16] LABS: Hepatitis C Antibody Positive (Negative)
[2022-06-25] MEDS: LACTULOSE 20Gm/30ML SOLN PO SCH (20:26)
[2022-06-25 22:30] VITALS: BP 132/94
[2022-06-25 23:51] VITALS: BP 132/94
[2022-06-26] MEDS: InsuLIN REG 1unit/0.01ml Soln (100units/ml) SC SCH ×6 (03:47→23:45)
[2022-06-26] MEDS: ACCU-CHEK COMFORT CURVE STRIP VI SCH ×6 (03:47→23:44)
[2022-06-26 05:00] VITALS: BP 129/86
[2022-06-26] MEDS: methylPREDNISolone SOD SUCC 40 MG/ML VL IV SCH ×3 (05:33→21:57)
[2022-06-26] MEDS: SODIUM CHLOR 0.9% PF (SALINE LOCK) 10ML VIAL/SYR IV SCH ×3 (05:35→21:57)
[2022-06-26] MEDS: ALBUTEROL MEDNEB 2.5 mg/3ml NEB NEB SCH ×5 (06:12→22:31)
[2022-06-26] MEDS: IPRATROPIUM BROM 0.5 MG/2.5ML INH SOL NEB SCH ×5 (06:12→22:31)
[2022-06-26 08:00] VITALS: BP 127/85
[2022-06-26 08:36] VITALS: BP 97/64
[2022-06-26] MEDS: FAMOTIDINE (10MG/ML) 2ML VL IV SCH (10:46)
[2022-06-26] MEDS: LACTULOSE 20Gm/30ML SOLN PO SCH ×2 (10:47→21:57)
[2022-06-26 12:30] VITALS: BP 143/98
[2022-06-26 16:22] VITALS: BP 131/93
[2022-06-26 22:00] VITALS: BP 113/86
[2022-06-26] MEDS ORDERED: INSULIN LANTUS (GLARGINE) 1 /0.01ml (100units/ml) SC SCH (22:00)
[2022-06-27 02:49] VITALS: BP 113/86
[2022-06-27] MEDS: ACCU-CHEK COMFORT CURVE STRIP VI SCH ×4 (03:58→16:11)
[2022-06-27] MEDS: InsuLIN REG 1unit/0.01ml Soln (100units/ml) SC SCH ×4 (03:59→16:09)
[2022-06-27 05:00] VITALS: BP 139/100
[2022-06-27] MEDS: methylPREDNISolone SOD SUCC 40 MG/ML VL IV SCH ×2 (05:46→14:08)
[2022-06-27] MEDS: SODIUM CHLOR 0.9% PF (SALINE LOCK) 10ML VIAL/SYR IV SCH ×2 (05:47→14:08)
[2022-06-27] MEDS: ALBUTEROL MEDNEB 2.5 mg/3ml NEB NEB SCH ×3 (06:51→14:29)
[2022-06-27] MEDS: IPRATROPIUM BROM 0.5 MG/2.5ML INH SOL NEB SCH ×3 (06:51→14:29)
[2022-06-27 08:00] VITALS: BP_SYST 131; BP_SYST 137; BP_DIAS 100
[2022-06-27] MEDS: FAMOTIDINE (10MG/ML) 2ML VL IV SCH (10:22)
[2022-06-27] MEDS: LACTULOSE 20Gm/30ML SOLN PO SCH (10:22)
[2022-06-27] MEDS ORDERED: FLEET ENEMA(ADULT) 135 ML PR ONE (11:15)
[2022-06-27 11:59] VITALS: BP 135/102
[2022-06-27 14:52] VITALS: BP 135/102
== END 2022-06-27 17:00 | DRG 189 ==
LOC: EDBD 15:49 → EDUNIT# 15:49 → ER 15:54 → TELE 21:11 → TELE-EAST 06-25 21:17
PROVIDERS: ADMIT Nurse Practitioner Family; ATTEND Family Medicine
DX: J96.21 Acute and chronic respiratory failure with hypoxia (principal); J45.902 Unspecified asthma with status asthmaticus; B18.1 Chronic viral hepatitis B without delta-agent; E11.65 Type 2 diabetes mellitus with hyperglycemia; I10 Essential (primary) hypertension; J84.112 Idiopathic pulmonary fibrosis; J43.9 Emphysema, unspecified; K21.9 Gastro-esophageal reflux disease without esophagitis; R79.89 Other specified abnormal findings of blood chemistry; E78.00 Pure hypercholesterolemia, unspecified; Z20.822 Contact with and (suspected) exposure to COVID-19; N28.9 Disorder of kidney and ureter, unspecified; Z87.891 Personal history of nicotine dependence; Z82.0 Family history of epilepsy and other diseases of the nervous system; Z82.49 Family history of ischemic heart disease and other diseases of the circulatory system; Z90.49 Acquired absence of other specified parts of digestive tract; Z79.899 Other long term (current) drug therapy; Z86.19 Personal history of other infectious and parasitic diseases
CPT/HCPCS: 36415; 71045; 76705; 80053; 81001; 82962; 83036; 83880; 84484; 85007; 85025; 85027; 85610; 85730; 86704; 86706; 86708; 86803; 87081; 87340; 87426; 94640; 96365; 96375; 97116; 97163; 97530; G0378; J1100; J1815; J2405; J3490